=== PATIENT | male | born 1965 | race Caucasian/White ===

== ENCOUNTER → 2019-11-28 08:45 | Outpatient (BNVA) | payer MEDICAID, SELFPAY | PROVIDERS: PCP Internal Medicine; Referring Provider Internal Medicine; Visit Provider Anesthesiology | DX: Z76.89 Persons encountering health services in other specified circumstances (principal) ==

== ENCOUNTER → 2019-12-12 08:01 | Outpatient (BNVA) | payer MEDICAID, SELFPAY | PROVIDERS: PCP Internal Medicine; Visit Provider Anesthesiology | DX: M17.31 Unilateral post-traumatic osteoarthritis, right knee (principal); I87.2 Venous insufficiency (chronic) (peripheral); G89.4 Chronic pain syndrome; F10.20 Alcohol dependence, uncomplicated | CPT/HCPCS: 99213 ==

== ENCOUNTER → 2019-12-15 12:59 | Outpatient (BNVA) | payer MEDICAID, SELFPAY | PROVIDERS: PCP Internal Medicine; Referring Provider Internal Medicine; Visit Provider Orthopaedic Surgery | DX: M62.89 Other specified disorders of muscle (principal); M17.11 Unilateral primary osteoarthritis, right knee | CPT/HCPCS: 99212; J1100 ==

== ENCOUNTER → 2020-02-02 09:14 | Outpatient (BNVA) | payer MEDICAID, SELFPAY | PROVIDERS: PCP Internal Medicine; Referring Provider Internal Medicine; Visit Provider Surgery Vascular Surgery | DX: I73.9 Peripheral vascular disease, unspecified (principal); I87.2 Venous insufficiency (chronic) (peripheral) | CPT/HCPCS: 99202 ==

== ENCOUNTER 2020-03-15 08:05 | Outpatient (REF) | payer MEDICAID, SELFPAY ==
--- NOTE | 2020-03-15 08:09 | US_ITS ---
EXAMINATION: COLOR-FLOW DUPLEX IMAGING OF THE BILATERAL LOWER EXTREMITY ARTERIAL SYSTEM. VELOCITY MEASUREMENTS TO THE POPLITEAL ARTERIES. CLINICAL INFORMATION: Peripheral vascular disease. FINDINGS: Right lower extremity: Brachial artery pressure is 117 mmHg with posterior tibial pressure 153 mmHg and at the dorsalis pedis artery 165 mmHg which corresponds to an ankle-brachial index of 1.28. This is a high normal ankle-brachial index however not likely related to noncompressible vessels as there are triphasic waveforms present to the ankle. Right common femoral artery has a triphasic waveform with peak systolic velocity 104 cm/s. Right profunda femoral artery has a triphasic waveform with peak systolic velocity of 49 cm/s. Proximal superficial femoral artery has a triphasic waveform with peak systolic velocity of 87 cm/s. Mid superficial femoral artery has a triphasic waveform with peak systolic velocity of 62 cm/s. Distal superficial femoral artery has a triphasic waveform with peak systolic velocity 54 cm/s. Popliteal artery has a triphasic waveform with peak systolic velocity of 45 cm/s. Distal posterior tibial artery has a triphasic waveform with peak systolic velocity of 49 cm/s. Proximal posterior tibial artery has a triphasic waveform with peak systolic velocity of 80 cm/s. Proximal peroneal artery has a triphasic waveform with peak systolic velocity of 40 cm/s. LEFT LOWER EXTREMITY: Brachial artery pressure is 129 mmHg. Ankle posterior tibial artery pressure is 168 mmHg. The ankle dorsalis pedis artery has a pressure 158 mmHg. This corresponds to a ankle-brachial index of 1.30. This is a high normal ankle-brachial index not likely related to a noncompressible vessel since there are triphasic waveforms present to the ankle. Common femoral artery has a triphasic waveform with peak systolic velocity of 82 cm/s. Profunda femoral artery has a triphasic waveform with peak systolic velocity of 64 cm/s. Proximal superficial femoral artery has a triphasic waveform and peak systolic velocity of 79 cm/s. Mid superficial femoral artery has a triphasic waveform and peak systolic velocity 53 cm/s. Distal superficial femoral artery has a triphasic waveform and peak systolic velocity of 41 cm/s. Popliteal artery has a triphasic waveform and peak systolic velocity of 64 cm/s. Distal posterior tibial artery has a triphasic waveform and peak systolic velocity of 56 cm/s. Proximal posterior tibial artery has a triphasic waveform and peak systolic velocity of 67 cm/s. Peroneal artery is not identified. US/US arterial duplex LE BI IMPRESSION: No significant lower extremity arterial disease from common femoral arteries to the ankles.
--- NOTE | 2020-03-15 08:09 | US_ITS ---
EXAMINATION: RIGHT and LEFT LOWER EXTREMITY VENOUS ULTRASOUND (Reflux Exam) CLINICAL INDICATION: Venous insufficiency, chronic, peripheral. COMPARISON: 12/07/2013 TECHNIQUE: Color flow triplex imaging and compression Doppler was performed to evaluate both the deep and the superficial systems bilaterally. To evaluate the superficial system, the examination was performed in the upright position. Color-flow Doppler ultrasound and compression ultrasound were utilized. In addition, maneuvers were utilized to demonstrate reflux. FINDINGS: 1. DEEP VENOUS ULTRASOUND OF THE RIGHT LOWER EXTREMITY: Respiratory variation, normal compression and augmented flow are noted in the right common femoral vein as well as the right popliteal vein and there is no evidence of deep venous thrombosis at these locations. There is deep venous reflux present. At the level of the common femoral vein, there is reflux of approximately 1.4 seconds. In the mid femoral vein, reflux is approximately 2 seconds. In the popliteal vein, the reflux is 2.9 seconds. No popliteal fossa cyst artery aneurysm. 2. SUPERFICIAL ULTRASOUND WITH DOPPLER OF RIGHT LOWER EXTREMITY: The right great saphenous vein at the saphenofemoral junction measures 9 mm, at the mid thigh 5 mm, [id number] 4 mm, [id number] 4 mm, at mid calf 4 mm and at the ankle measures 4 mm. The only reflux in the greater saphenous vein is seen at the level of the ankle and 2.2 seconds with no reflux seen at the saphenofemoral junction. The right small saphenous vein measures 5 mm and shows no reflux. A perforate is seen in the mid calf measuring 4 mm in diameter with reflux time of 2.6 seconds noted. There are varicose veins noted within the mid thigh, proximal calf, and distal calf with reflux seen within the calf varicosities. 3. DEEP VENOUS ULTRASOUND OF THE LEFT LOWER EXTREMITY: Respiratory variation, normal compression and augmented flow are noted in the left common femoral vein as well as the left popliteal vein and there is no evidence of deep venous thrombosis at these locations. There is no evidence of reflux in the deep system in either the common femoral vein or the popliteal vein. No popliteal fossa cyst or popliteal artery aneurysm. 4. SUPERFICIAL ULTRASOUND WITH DOPPLER OF LEFT LOWER EXTREMITY: Left great saphenous vein at the saphenofemoral junction measures 9 mm, at the mid thigh 4 mm, above the knee 5 mm, below the knee 3 mm, at mid calf 2 mm and at the ankle measures 3 mm. There is no reflux demonstrated in the left great saphenous vein other than at the ankle up to approximately 0.6 seconds. The left small saphenous vein measures 5 mm and shows no reflux. US/US venous duplex LE BI IMPRESSION: No evidence of thrombus in the common femoral veins or popliteal veins bilaterally. Deep venous reflux within the right lower extremity from common femoral vein through popliteal vein. The saphenous systems are competent bilaterally other than for at the ankle level.
== END 2020-03-15 08:06 | disposition home or self-care (01) ==
LOC: HO.US 08:05
PROVIDERS: PCP Internal Medicine; Visit Provider Surgery Vascular Surgery
DX: I70.213 Atherosclerosis of native arteries of extremities with intermittent claudication, bilateral legs (principal); I87.2 Venous insufficiency (chronic) (peripheral)
CPT/HCPCS: 93923; 93925; 93970

== ENCOUNTER → 2020-03-29 08:54 | Outpatient (BNVA) | payer MEDICAID, SELFPAY | PROVIDERS: PCP Internal Medicine; Visit Provider Surgery Vascular Surgery | DX: I73.9 Peripheral vascular disease, unspecified (principal); G62.9 Polyneuropathy, unspecified | CPT/HCPCS: 99212 ==

== ENCOUNTER 2020-07-12 13:42 | Outpatient (REF) | payer MEDICAID, SELFPAY ==
--- NOTE | ~2020-07-12 | MM_ITS ---
EXAMINATION: MM DIAGNOSTIC DIGITAL BREAST TOMOSYNTHESIS, BILATERAL CLINICAL INFORMATION: Left breast lump COMPARISON: Mammography: None TECHNIQUE: Digital breast tomosynthesis is performed in both the craniocaudal and mediolateral oblique views along with computer-aided detection (CAD). Synthesized 2D images are generated from the tomosynthesis. Targeted left breast ultrasound FINDINGS: There are scattered areas of fibroglandular density (ACR BI-RADS breast composition Category b). There is some retroareolar breast parenchyma present consistent with gynecomastia. No suspicious dominant mass or abnormal calcifications identified. No architectural distortion is seen. Targeted left breast ultrasound at palpable region where patient direct this study to does not demonstrate any suspicious cystic or solid lesions. No region of abnormal distal sound shadowing is evident. There are 2 adjacent hyperechoic regions which could represent breast lobules or possible lipomas the largest of which measures approximately 1.8 x 0.7 cm in size and is wider than it is tall and avascular. Results are discussed with the patient at time of visit. MM/MM tomosynthesis diagnostic BI IMPRESSION: No specific mammographic or ultrasound findings to suggest malignancy. ASSESSMENT: BI-RADS 2: Benign RECOMMENDATION: Clinical management
--- NOTE | ~2020-07-12 | US_ITS ---
EXAMINATION: US DIAGNOSTIC ULTRASOUND BREAST, LEFT CLINICAL INFORMATION: Lump. COMPARISON: Mammography of same day. TECHNIQUE: Ultrasound of the breast is performed with real-time ortiz scale imaging and color Doppler. FINDINGS: Targeted left breast ultrasound at palpable region where patient direct this study to does not demonstrate any suspicious cystic or solid lesions. No region of abnormal distal sound shadowing is evident. There are 2 adjacent hyperechoic regions which could represent breast lobules or possible lipomas the largest of which measures approximately 1.8 x 0.7 cm in size and is wider than it is tall and avascular. Results are discussed with the patient at time of visit. US/US breast LT limited IMPRESSION: No specific mammographic or ultrasound findings to suggest malignancy. ASSESSMENT: BI-RADS 2: Benign RECOMMENDATION: Clinical management
== END 2020-07-12 13:43 | disposition home or self-care (01) ==
LOC: HO.MAMMO 13:42
PROVIDERS: PCP Internal Medicine; Visit Provider Internal Medicine
DX: N63.21 Unspecified lump in the left breast, upper outer quadrant (principal)
CPT/HCPCS: 76642; 77062; 77066

== ENCOUNTER 2020-11-06 15:00 | Outpatient (RCR) | payer MEDICAID, SELFPAY | END 2020-12-10 15:08 | disposition home or self-care (01) | LOC: HO.PT 15:00 | PROVIDERS: PCP Internal Medicine; Visit Provider Internal Medicine | DX: M25.561 Pain in right knee (principal) | CPT/HCPCS: 97110; 97150; 97162 ==

== ENCOUNTER 2021-04-03 08:55 | Outpatient (REF) | payer MEDICAID, SELFPAY ==
--- NOTE | ~2021-04-03 | US_ITS ---
EXAMINATION: US RETROPERITONEAL LIMITED (RENAL ONLY) CLINICAL INFORMATION: Chronic kidney disease. COMPARISON: Nuclear medicine renal scan 10/29/2017. Ultrasound abdomen 08/10/2017 and 07/08/2014. TECHNIQUE: Real-time imaging of the kidneys. FINDINGS: RIGHT KIDNEY: 11.6 x 7.2 x 6.3 cm (SAG x AP x TRV). The kidney is normal in size, contour, and echogenicity. Renal cortical thickness is normal. No calculi or focal parenchymal lesions. No hydronephrosis. LEFT KIDNEY: 13.4 x 7.3 x 5.7 cm (SAG x AP x TRV). The kidney is normal in size, contour, and echogenicity. Renal cortical thickness is normal. There is mild left hydronephrosis. There are several echogenic foci in the left kidney suggestive of stones, largest measuring 5 mm in the upper pole. No focal parenchymal lesions. US/US renal BI IMPRESSION: Normal right kidney. Mild left hydronephrosis and probable small left renal stones. Hydronephrosis is similar to previous exam from 2018.
== END 2021-04-03 08:56 | disposition home or self-care (01) ==
LOC: HO.US 08:55
PROVIDERS: Visit Provider Internal Medicine
DX: N18.9 Chronic kidney disease, unspecified (principal)
CPT/HCPCS: 76775

== ENCOUNTER 2021-04-17 11:14 | Inpatient (IN) | payer MEDICAID, SELFPAY ==
--- NOTE | ~2021-04-17 | US_ITS ---
EXAMINATION: US ABDOMEN LIMITED CLINICAL INFORMATION: Right upper quadrant pain. Question cholecystitis on CT.. COMPARISON: CT abdomen and pelvis 04/17/2021 TECHNIQUE: Real-time imaging of the right upper quadrant abdominal viscera. FINDINGS: There is echogenic mobile debris seen in the gallbladder with no echogenic stones. The wall appears mildly thickened measuring 1.2 cm and slightly edematous with increased vascularity. CBD is not visualized. US/US abdomen limited IMPRESSION: Thickened gallbladder with edema and echogenic debris but no pericholecystic fluid collection or echogenic stones. Question acalculus cholecystitis similar to CT finding.
--- NOTE | ~2021-04-17 | CT_ITS ---
EXAMINATION: CT ABDOMEN AND PELVIS WITHOUT CONTRAST CLINICAL INFORMATION: Right-sided pain. History of kidney stones. COMPARISON: Previous CT of the abdomen and pelvis June 2014 and renal ultrasound March 2021 TECHNIQUE: Multidetector volumetric imaging was performed from the superior aspect of the liver through the pubic symphysis. Sagittal and coronal reformatted images were obtained on the technologist's workstation. This CT examination was performed using dose optimization techniques as appropriate, variously including the following: *Automated exposure control *Adjustment of mA and/or kV according to patient size (this includes techniques or standardized protocols for targeted exams where dose is matched to indication/reason for exam; i.e. extremities or head) *Use of iterative reconstruction technique DLP: 1043 mGy-cm FINDINGS: LUNG BASES: The visualized lung bases are unremarkable. LIVER, GALLBLADDER, AND BILIARY TREE: The liver is normal in size, shape, and attenuation. No focal hepatic lesion or biliary ductal dilatation is present. The gallbladder wall is very thickened and may be edematous. There is stranding of the pericholecystic fat. No gallstones are seen by CT scan. The appearance is concerning for cholecystitis. There is no intra or extrahepatic biliary duct dilatation. Common bile duct appears upper normal in size measuring 7 mm. PANCREAS: Unremarkable. SPLEEN: Unremarkable. ADRENAL GLANDS: Unremarkable. KIDNEYS AND URETERS: There are small left renal stones, largest measuring 3 mm in the upper pole of the left kidney. No right renal stones are seen. There is mild left hydronephrosis. The left ureter does not appear dilated. No ureteral stone is seen. BLADDER: Unremarkable. GASTROINTESTINAL TRACT: The small and large bowel are unremarkable. The appendix is unremarkable. ABDOMINAL WALL: There is a small umbilical hernia containing fat. LYMPH NODES: There are small retroperitoneal lymph nodes. No enlarged lymph nodes are seen. VASCULAR: Unremarkable. PELVIC VISCERA: Unremarkable. OSSEOUS STRUCTURES: There are degenerative changes of the spine. CT/CT abdomen pelvis wo con IMPRESSION: Abnormal appearing gallbladder concerning for cholecystitis. No gallstone seen by CT scan. Small left renal stones and mild left hydronephrosis. No right renal stone or hydronephrosis seen. Fleischner guidelines were followed.
[2021-04-17 11:51] VITALS: BP 152/97; PULSE 99; RESP 18; TEMP 36.9; O2SAT 98; BMI 35.7
--- NOTE | 2021-04-17 11:59 | ED_ITS ---
HPI - Abdominal Pain General Chief Complaint: Abdominal Pain Stated Complaint: Abd pain Time Seen by Provider: 04/17/21 11:59 Source: patient Mode of arrival: ambulatory Limitations: no limitations History of Present Illness HPI narrative: Patient 56 years old with history of kidney stones noticed pain in the right upper quadrant and flank area for last 3 days no nausea no vomiting pain gets worse on ambulation patient never had any problems with gallstones had kidney stones in the past had stent placed 8 years ago on the left side no fever no chills no diarrhea had normal bowel movement earlier today does not feel hungry and pain gets worse after he eats Related Data Home Medications Medication Instructions Recorded Confirmed atorvastatin 20 mg tablet 20 mg PO BEDTIME 11/26/19 04/17/21 folic acid 1 mg tablet 1 mg PO DAILY 11/26/19 04/17/21 furosemide 80 mg tablet (Lasix) 80 mg PO DAILY 11/26/19 04/17/21 acetaminophen 500 mg tablet 2 tab PO Q8H PRN 04/17/21 04/17/21 capsaicin 0.075 % topical cream 1 appl TOPICAL TID 04/17/21 04/17/21 (Arthritis Pain Relief (capsaicin)) cyanocobalamin (vitamin B-12) 100 0.5 tab PO QAM 04/17/21 04/17/21 mcg tablet escitalopram oxalate 10 mg tablet 1 tab PO QAM 04/17/21 04/17/21 gabapentin 800 mg tablet 3 tab PO QAM 04/17/21 04/17/21 latanoprost 0.005 % eye drops 1 drp OPHTHALMIC (EYE) DAILY 04/17/21 04/17/21 metoprolol succinate 50 mg 1 tab PO QAM 04/17/21 04/17/21 tablet,extended release 24 hr multivitamin 1 tab PO DAILY 04/17/21 04/17/21 oxycodone 5 mg tablet 1 tab PO DAILY PRN 04/17/21 04/17/21 pantoprazole 40 mg tablet,delayed 1 tab PO QAM 04/17/21 04/17/21 release tamsulosin 0.4 mg capsule 1 cap PO QAM 04/17/21 04/17/21 testosterone 20.25 mg/1.25 gram 1 pump TOPICAL QAM 04/17/21 04/17/21 (1.62 %) transdermal gel pump (AndroGel) thiamine HCl (vitamin B1) 100 mg 1 tab PO QAM 04/17/21 04/17/21 tablet topiramate 50 mg tablet 1 tab PO BEDTIME 04/17/21 04/17/21 varenicline 1 mg tablet 1 tab PO BID 04/17/21 04/17/21 verapamil 200 mg capsule 24hr 1 cap PO BEDTIME 04/17/21 04/17/[address],ext.release Allergies Allergy/AdvReac Type Severity Reaction Status Date / Time disulfiram [From ANTABUSE] Allergy Unknown SWELLING Verified 03/29/20 09:08 Review of Systems Review of Systems Yes all other systems are reviewed and are negative [facility] Past Medical History Medical History Alcohol dependence Cellulitis and abscess of leg, except foot Chronic alcoholism Chronic pain syndrome Combinations of drug dependence excluding opioid type drug Depressive disorder Hamstring tightness Post-traumatic osteoarthritis of right knee Venous insufficiency of right lower extremity Surgical History History of ankle surgery History of vasectomy Family History Family History Father No problems noted. Mother No problems noted. Social History Social History Advance Directives: Yes Advance Directives Information Provided: No Advance Directives on File: No Current occupational status: disabled Current occupation: Right Handed Physical Exam ED Vital Signs: Vital Signs - 24 hr 04/17/21 11:51 04/17/21 14:31 Temperature 98.4 F Pulse Rate 99 84 Respiratory Rate 18 17 Blood Pressure 152/97 H 122/91 H Pulse Oximetry 98 96 BMI result Body Mass Index 35.7 Appearance: Alert. Oriented X3. No acute distress. Eyes: No pallor or icterus ENT: Pharynx normal. Oral Mucosa moist Neck: Normal inspection. Neck supple. CVS: Normal heart rate and rhythm. Pulses normal. Respiratory: No respiratory distress. Equal air entry bilateral, no wheezing/rales/rhonchi Abdomen: Soft , tenderness right upper quadrant and bilateral flank area, Bowel sounds are present, no mass palpable, Skin: Skin warm and dry. Normal skin color. Normal skin turgor. Extremities: No lower extremity edema. No calf tenderness Neuro: Oriented X 3. MDM - Abdominal Pain MDM Narrative Medical decision making narrative: Patient's right upper quadrant pain workup showed acalculous cholecystitis with thickening of the gallbladder wall to 1.2 cm normal CBD normal liver function test white count slightly elevated normal lactic acid case seen by Dr. Jack will admit the patient to surgical site advised to start on Zosyn Medical Records Attestation: I reviewed the patient's medical records. Lab Data Attestation: I reviewed the patient's lab results. Result diagrams: 04/17/21 11:59 04/17/21 11:59 Labs: Lab Results 04/17/21 04/17/21 04/17/21 Range/Units 11:59 11:59 15:06 WBC 11.5 H (4.8-10.8) X10*3/uL RBC 4.97 (4.60-5.80) X10*6/uL Hgb 14.3 (14.0-18.0) g/dl Hct 44.3 (42.0-52.0) % MCV 89.1 (80.0-98.0) fL MCH 28.8 (27.0-33.0) pg MCHC 32.3 (31.0-36.0) g/dl RDW 14.0 (11.0-16.0) % Plt Count 206 (160-400) X10*3/uL MPV 9.8 (9.4-12.4) fL Immature Gran % (Auto) 0.3 (0.0-0.4) % Neut % (Auto) 71.7 (45-73) % Lymph % (Auto) 16.9 L (20-40) % [place] % (Auto) 9.6 (2-11) % Eos % (Auto) 1.0 (0-4) % Baso % (Auto) 0.5 (0-2) % Lymph # (Auto) 1.9 (1.2-4.9) X10*3/uL [place] # (Auto) 1.1 (0.1-1.2) X10*3/uL Eos # (Auto) 0.1 (0.0-0.4) X10*3/uL Baso # (Auto) 0.1 (0.0-0.2) X10*3/uL Abs Immat Gran (auto) 0.04 H (0.00-0.03) X10*3/uL Absolute Neuts (auto) 8.3 (2.0-8.3) x10*3/uL Absolute Nucleated RBC 0.000 (0.0-0.012) X10*3/uL Nucleated RBC % (auto) 0.0 (0.0-0.2) /100WBC Sodium 139 (135-145) mmol/L Potassium 3.6 (3.3-5.1) mmol/L Chloride 99 (96-108) mmol/L Carbon Dioxide 29 (22-29) mmol/L Anion Gap 15 (12-20) BUN 15 (9-16) mg/dL Creatinine 1.07 (0.5-1.4) mg/dL Estim Creat Clear Calc 114.5 Estimated GFR > 60 Random Glucose 109 (60-115) mg/dL Lactic Acid 0.9 (0.5-2.0) mmol/L Calcium 9.7 (8.4-10.2) mg/dL Total Bilirubin 0.7 (0.0-1.0) mg/dL AST 15 (5-37) U/L ALT 15 (0-40) U/L Alkaline Phosphatase 78 (39-117) U/L Total Protein 7.2 (6.5-8.0) g/dL Albumin 4.2 (3.5-5.0) g/dL Lipase 14 (8-78) U/L Discharge Plan Discharge Clinical Impression: Acute acalculous cholecystitis Patient Disposition: Admitted As Inpatient
[2021-04-17 12:04] LABS: MANUAL DIFF FLAG NO
[2021-04-17 12:12] LABS: Basophils Absolute Auto 0.1 X10*3/uL (0.0-0.2); Basophils Percent Auto 0.5 % (0-2); Eosinophils Absolute Auto 0.1 X10*3/uL (0.0-0.4); Hematocrit 44.3 % (42.0-52.0); Hemoglobin 14.3 g/dl (14.0-18.0); Imm Gran Abs Auto 0.04 X10*3/uL (0.00-0.03); Imm Gran Pct Auto 0.3 % (0.0-0.4); Lymphocytes Absolute Auto 1.9 X10*3/uL (1.2-4.9); Lymphocytes Percent Auto 16.9 % (20-40); Mean Corpuscular HGB Conc 32.3 g/dl (31.0-36.0); Mean Corpuscular Hemoglobin 28.8 pg (27.0-33.0); Mean Corpuscular Volume 89.1 fL (80.0-98.0); Mean Platelet Volume 9.8 fL (9.4-12.4); Monocytes Absolute Auto 1.1 X10*3/uL (0.1-1.2); Monocytes Percent Auto 9.6 % (2-11); Neutrophils Absolute Auto 8.3 x10*3/uL (2.0-8.3); Neutrophils Percent Auto 71.7 % (45-73); Platelet Count 206 X10*3/uL (160-400); Red Blood Count 4.97 X10*6/uL (4.60-5.80); White Blood Count 11.5 X10*3/uL (4.8-10.8)
[2021-04-17 12:26] LABS: Alanine Aminotransferase 15 U/L (0-40); Albumin Level 4.2 g/dL (3.5-5.0); Alkaline Phosphatase 78 U/L (39-117); Anion Gap 15 (12-20); Aspartate Amino Transferase 15 U/L (5-37); Bilirubin Total 0.7 mg/dL (0.0-1.0); Blood Urea Nitrogen 15 mg/dL (9-16); Calcium 9.7 mg/dL (8.4-10.2); Carbon Dioxide 29 mmol/L (22-29); Chloride 99 mmol/L (96-108); Creatinine Clr Calc Pharmacy 114.5; Estimated Glomerular Filt Rate > 60; Glucose Random 109 mg/dL (60-115); Lipase 14 U/L (8-78); Potassium 3.6 mmol/L (3.3-5.1); Sodium 139 mmol/L (135-145); Total Protein 7.2 g/dL (6.5-8.0)
[2021-04-17] MEDS: 0.9 % Sodium Chloride 1,000 ML 999 ML IV ×2 (13:46→18:03)
[2021-04-17] MEDS: HYDROmorphone HCl 1 MG/ML SYRINGE IVPUSH ×3 (13:46→18:01)
[2021-04-17] MEDS: ondansetron HCL 4 MG/2 ML VIAL IVPUSH (13:47)
[2021-04-17 14:31] VITALS: BP 122/91; PULSE 84; RESP 17; O2SAT 96
[2021-04-17 15:23] LABS: Lactic Acid 0.9 mmol/L (0.5-2.0)
--- NOTE | 2021-04-17 15:51 | ECG_ITS ---
Test Reason : HTN Blood Pressure : / mmHG Vent. Rate : 077 BPM Atrial Rate : 077 BPM P-R Int : 186 ms QRS Dur : 166 ms QT Int : 432 ms P-R-T Axes : 051 -21 038 degrees QTc Int : 488 ms Normal sinus rhythm Right bundle branch block Abnormal ECG When compared with ECG of 06-JUL-2017 21:43, Right bundle branch block is now Present Referred By: Michele Aguilar Electronically Signed By:MAYTE HUANG
--- NOTE | 2021-04-17 16:22 | PHA.MEDREC ---
Pharmacy Consult ? Medication Reconciliation Pharmacy has completed the medication reconciliation. Patient states he used a med box for all of his medications. He takes the oxycodone every once in a while when his knee pain is acting up. The Androgel isn't used daily, he states that he forgets for a couple days then dose a few pumps in one day. He also stated that he missed his last few doses of Chantix.
--- NOTE | 2021-04-17 17:14 | P.HPGS_ITS ---
History of Present Illness History of Present Illness Date of Service: 04/23/21 Chief complaint: Right upper quadrant pain Narrative: Zuhair Anthony is a 56 year old male with history of alcohol abuse, CHF, hypertension, had admitted today by the ER because of epigastric and right upper quadrant pain. He says that this started about 2 days ago. This seems to have worsened today so he decided to come to the ER. He denies any fever or chills. He denies any nausea or vomiting. He does have a significant history of alcohol abuse. He says that he has been sober for several months now however. Review of Systems Constitutional: Constitutional: Denies chills and Denies fever(s) Cardiovascular: Cardiovascular: Denies chest pain, Denies dyspnea and Denies dyspnea on exertion Respiratory: Respiratory: Denies cough, Denies dyspnea and Denies dyspnea on exertion Gastrointestinal: Gastrointestinal: Denies hematochezia and Denies change in bowel habits Genitourinary: Genitourinary: Denies hematuria and Denies difficulty urinating Musculoskeletal: Musculoskeletal: Denies back pain and Denies limited range of motion Neurologic: Denies focal weakness and Denies convulsions Psychiatric: Psychiatric: Denies depression and Denies mood swings PMFSH Past Medical History Medical History (Updated 04/18/21 @ 11:07 by Jami Callahan MD) Alcohol dependence Cellulitis and abscess of leg, except foot Chronic alcoholism Chronic pain syndrome Combinations of drug dependence excluding opioid type drug Depressive disorder Hamstring tightness Post-traumatic osteoarthritis of right knee Venous insufficiency of right lower extremity Family History Family History Father No problems noted. Mother No problems noted. Surgical History Surgical History (Updated 04/18/21 @ 18:00 by Obey Jack MD) History of ankle surgery History of umbilical hernia repair History of vasectomy Social History Social History Household Members: Family Housing: House Do you presently have visiting nurse or other home services: No Patient Tobacco Use Status: Current everyday Tobacco user Tobacco use type: Cigarette Cigarette Packs Per Day: 0.5 Cigarettes Per Day: 10 Years Smoked: 36 Second Hand Smoke Exposure: Yes Advance Directives Date on File: 04/17/21 service: No Current occupational status: disabled Current occupation: Right Handed Meds Allergies Allergy/AdvReac Type Severity Reaction Status Date / Time disulfiram [From ANTABUSE] Allergy Unknown SWELLING Verified 04/22/21 14:23 Active Medications: Current Medications Escitalopram Oxalate (Escitalopram Oxalate 10 Mg Tablet) 10 mg PO QAM KIKI Folic Acid (Folic Acid 1 Mg Tablet) 1 mg PO DAILY KIKI Furosemide (Furosemide 40 Mg Tablet) 80 mg PO DAILY KIKI; Protocol Gabapentin (Gabapentin 400 Mg Capsule) 2,400 mg PO QAM KIKI Hydromorphone HCl (Hydromorphone Hcl 1 Mg/Ml Syringe) 0.5 mg IVPUSH Q3H PRN; Protocol PRN Reason: Pain, Severe (Pain Scale 7-10) Sodium Chloride (Ns) 1,000 mls @ 80 mls/hr IVCONT .[id number] KIKI Piperacillin Sod/Tazobactam (Sod 3.375 gm/ Sodium Chloride) 50 mls @ 100 mls/hr IV Q6H KIKI Latanoprost (Latanoprost 0.005 % Ophth Shirley 2.5 Ml Drops) 1 drop EYE-BOTH DAILY KIKI Metoprolol Succinate (Metoprolol Succinate Er 50 Mg Tab.Er.24h) 50 mg PO QAM KIKI; Protocol Omeprazole (Omeprazole 40 Mg Capsule.Dr) 40 mg PO DAILY KIKI Ondansetron HCl (Ondansetron Hcl 4 Mg/2 Ml Vial) 4 mg IVPUSH Q8H PRN PRN Reason: Nausea and Vomiting Sodium Chloride (0.9 % Sodium Chloride Flush 3 Ml Syringe) 3 ml IVFLUSH QSHIFT KIKI Tamsulosin HCl (Tamsulosin Hcl 0.4 Mg Capsule) 0.4 mg PO QAM KIKI Thiamine HCl (Thiamine Hcl 100 Mg Tablet) 100 mg PO QAM KIKI Topiramate (Topiramate 25 Mg Tablet) 50 mg PO BEDTIME KIKI Verapamil HCl (Verapamil Hcl Sr 100 Mg Cap24h.Pct) 200 mg PO BEDTIME KIKI; Protocol Home Medications Medication Instructions Recorded Confirmed Last Taken Type atorvastatin 20 mg tablet 20 mg PO BEDTIME 11/26/19 04/22/21 04/16/21 History folic acid 1 mg tablet 1 mg PO DAILY 11/26/19 04/22/21 04/17/21 History furosemide 80 mg tablet (Lasix) 80 mg PO DAILY 1004/22/21 04/17/21 History acetaminophen 500 mg tablet 2 tab PO Q8H PRN 04/17/21 04/22/21 Unknown History capsaicin 0.075 % topical cream 1 appl TOPICAL TID 04/17/21 04/22/21 Unknown History (Arthritis Pain Relief (capsaicin)) cyanocobalamin (vitamin B-12) 100 0.5 tab PO QAM 04/17/21 04/22/21 04/17/21 H istory mcg tablet escitalopram oxalate 10 mg tablet 1 tab PO QAM 04/17/21 04/22/21 04/17/21 History gabapentin 800 mg tablet 3 tab PO QAM 04/17/21 04/22/21 04/17/21 History latanoprost 0.005 % eye drops 1 drp OPHTHALMIC (EYE) DAILY 04/17/21 04/22/21 04/17/21 History metoprolol succinate 50 mg 1 tab PO QAM 04/17/21 04/22/21 04/17/21 History tablet,extended release 24 hr multivitamin 1 tab PO DAILY 04/17/21 04/22/21 04/17/21 History oxycodone 5 mg tablet 1 tab PO DAILY PRN 04/17/21 04/17/21 Unknown History pantoprazole 40 mg tablet,delayed 1 tab PO QAM 04/17/21 04/17/21 04/17/21 History release tamsulosin 0.4 mg capsule 1 cap PO QAM 04/17/21 04/17/21 04/17/21 History testosterone 20.25 mg/1.25 gram 1 pump TOPICAL QAM 04/17/21 04/17/21 Unknown History (1.62 %) transdermal gel pump (AndroGel) thiamine HCl (vitamin B1) 100 mg 1 tab PO QAM 04/17/21 04/17/21 04/17/21 History tablet topiramate 50 mg tablet 1 tab PO BEDTIME 04/17/21 04/17/21 04/16/21 History varenicline 1 mg tablet 1 tab PO BID 04/17/21 04/17/21 04/16/21 History verapamil 200 mg capsule 24hr 1 cap PO BEDTIME 04/17/21 04/17/21 04/16/[address],ext.release Physical Exam Vital Signs: Vital Signs: Last Vital Signs Temp 98.4 F 04/17/21 11:51 Pulse 84 04/17/21 14:31 Resp 17 04/17/21 14:31 BP 122/91 H 04/17/21 14:31 Pulse Ox 96 04/17/21 14:31 BMI result Body Mass Index 35.7 Const: Other: Appears obese General: comfortable and no acute distress Orientation/consciousness: patient oriented x3 Neck: Neck: Yes no lymphadenopathy Resp: Auscultation: clear to auscultation bilaterally Cardio: Rhythm: regular rhythm GI: Other: Tender in right upper quadrant Palpation (GI): Soft to palpation, Tenderness to palpation present (GI) and no guarding Neuro: General: patient oriented x3 Results Results Labs: Short CBC 04/17/21 Range/Units 11:59 WBC 11.5 H (4.8-10.8) X10*3/uL Hgb 14.3 (14.0-18.0) g/dl Hct 44.3 (42.0-52.0) % Plt Count 206 (160-400) X10*3/uL BMP 04/17/21 11:59 Sodium 139 Potassium 3.6 Chloride 99 Carbon Dioxide 29 BUN 15 Creatinine 1.07 Calcium 9.7 Liver Function 04/17/21 Range/Units 11:59 Total Bilirubin 0.7 (0.0-1.0) mg/dL AST 15 (5-37) U/L ALT 15 (0-40) U/L Alkaline Phosphatase 78 (39-117) U/L Albumin 4.2 (3.5-5.0) g/dL Abdomen CT scan report/results: report reviewed and image reviewed Assessment and Plan (1) Acute acalculous cholecystitis: Status: Acute He describes right upper quadrant pain and tenderness. I reviewed his ultrasound and his CAT scan. This shows some thickening of the gallbladder wall without any evidence of any gallstones. Findings are suggestive of acute acalculous cholecystitis. He will be admitted for antibiotics. He has been started on IV fluids. He has been ordered for pain medications. Will repeat his LFTs tomorrow as well. I told him that if he continues to have significant pain, he may benefit from cholecystectomy. I described the him the technique of laparoscopic cholecystectomy and possible open cholecystectomy. I reviewed the risks including but not limited to bleeding, infections, injury to bowel, liver and bile ducts, as well as the benefits and alternatives. We will re-evaluate him in the morning. I have consulted the hospitalist service in view of his history of CHF. Quality Stroke Does the patient have a stroke diagnosis?: No VTE Prior VTE?: No VTE Risk Level:: Medical - moderate - high VTE Device Contraindication: N/A - Device Ordered VTE Drug Contraindication: N/A - Med Ordered Procedures Date of Service Date of Service: 04/17/21
--- NOTE | 2021-04-17 17:40 | P.CONIM_ITS ---
History of Present Illness Data of Consult Service Date: 04/17/21 Primary Care Provider: Unknown Physician HPI Reason for consult: History of CHF a 56 years old male with PMH of obesity, P 80, HLD, CHF, BPH among others who presented to the hospital with abdominal pain and found to have cholecystitis picture. The patient reports that he lost almost 50 lb since November and for the last few weeks he noticed some indigestion upon eating fatty staff. For the last 3 days this and does SM became pain and he was in the bed most of the time as a result of that. He came to the emergency stay and evaluated by surgery team who recommended admission for acalculous cholecystitis and started him on IV fluid and IV antibiotics with possible plan for surgery. Hospitalist team asked to evaluate the patient for history of CHF and other medical problems. He reports CHF has been controlled medication with no recent exacerbation. Review of Systems Review of Systems: No fever, chills or weakness No chest pain, palpitation No shortness of breath or coughing Right upper quadrant abdominal pain, associated with mild nausea but no vomiting No urinary symptoms No any rash or wounds PMFSH Medical History Alcohol dependence Cellulitis and abscess of leg, except foot Chronic alcoholism Chronic pain syndrome Combinations of drug dependence excluding opioid type drug Depressive disorder Hamstring tightness Post-traumatic osteoarthritis of right knee Venous insufficiency of right lower extremity Family History Father No problems noted. Mother No problems noted. Surgical History History of ankle surgery History of vasectomy Social History Advance Directives: Yes Advance Directives Information Provided: No Advance Directives on File: No Current occupational status: disabled Current occupation: Right Handed Meds Allergies Allergy/AdvReac Type Severity Reaction Status Date / Time disulfiram [From ANTABUSE] Allergy Unknown SWELLING Verified 03/29/20 09:08 Active Medications: Current Medications Escitalopram Oxalate (Escitalopram Oxalate 10 Mg Tablet) 10 mg PO DAILY [facility] Folic Acid (Folic Acid 1 Mg Tablet) 1 mg PO DAILY [facility] Furosemide (Furosemide 40 Mg Tablet) 80 mg PO DAILY [facility]; Protocol Gabapentin (Gabapentin 400 Mg Capsule) 2,400 mg PO DAILY [facility] Hydromorphone HCl (Hydromorphone Hcl 1 Mg/Ml Syringe) 0.5 mg IVPUSH Q3H PRN; Protocol PRN Reason: Pain, Severe (Pain Scale 7-10) Sodium Chloride (Ns) 1,000 mls @ 80 mls/hr IVCONT .[id number] [facility] Piperacillin Sod/Tazobactam (Sod 3.375 gm/ Sodium Chloride) 50 mls @ 100 mls/hr IV Q6H [facility] Latanoprost (Latanoprost 0.005 % Ophth [place] 2.5 Ml Drops) 1 drop EYE-BOTH DAILY [facility] Metoprolol Succinate (Metoprolol Succinate Er 50 Mg Tab.Er.24h) 50 mg PO DAILY [facility]; Protocol Omeprazole (Omeprazole 40 Mg Capsule.Dr) 40 mg PO DAILY@0630 [facility] Ondansetron HCl (Ondansetron Hcl 4 Mg/2 Ml Vial) 4 mg IVPUSH Q8H PRN PRN Reason: Nausea and Vomiting Sodium Chloride (0.9 % Sodium Chloride Flush 3 Ml Syringe) 3 ml IVFLUSH QSHIFT [facility] Tamsulosin HCl (Tamsulosin Hcl 0.4 Mg Capsule) 0.4 mg PO DAILY [facility] Thiamine HCl (Thiamine Hcl 100 Mg Tablet) 100 mg PO DAILY [facility] Topiramate (Topiramate 25 Mg Tablet) 50 mg PO BEDTIME [facility] Verapamil HCl (Verapamil Hcl Sr 100 Mg Cap24h.Pct) 200 mg PO BEDTIME [facility]; Protocol Home Medications Medication Instructions Recorded Confirmed Last Taken Type atorvastatin 20 mg tablet 20 mg PO BEDTIME 11/26/19 04/17/21 04/16/21 History folic acid 1 mg tablet 1 mg PO DAILY 11/26/19 04/17/21 04/17/21 History furosemide 80 mg tablet (Lasix) 80 mg PO DAILY 11/26/19 04/17/21 04/17/21 History acetaminophen 500 mg tablet 2 tab PO Q8H PRN 04/17/21 04/17/21 Unknown History capsaicin 0.075 % topical cream 1 appl TOPICAL TID 04/17/21 04/17/21 Unknown History (Arthritis Pain Relief (capsaicin)) cyanocobalamin (vitamin B-12) 100 0.5 tab PO QAM 0204/17/21 04/17/21 History mcg tablet escitalopram oxalate 10 mg tablet 1 tab PO QAM 04/17/21 04/17/21 04/17/21 History gabapentin 800 mg tablet 3 tab PO QAM 04/17/21 04/17/21 04/17/21 History latanoprost 0.005 % eye drops 1 drp OPHTHALMIC (EYE) DAILY 04/17/21 04/17/21 04/17/21 History metoprolol succinate 50 mg 1 tab PO QAM 04/17/21 04/17/21 04/17/21 History tablet,extended release 24 hr multivitamin 1 tab PO DAILY 04/17/21 04/17/21 04/17/21 History oxycodone 5 mg tablet 1 tab PO DAILY PRN 04/17/21 04/17/21 Unknown History pantoprazole 40 mg tablet,delayed 1 tab PO QAM 04/17/21 04/17/21 04/17/21 History release tamsulosin 0.4 mg capsule 1 cap PO QAM 04/17/21 04/17/21 04/17/21 History testosterone 20.25 mg/1.25 gram 1 pump TOPICAL QAM 04/17/21 04/17/21 Unknown History (1.62 %) transdermal gel pump (AndroGel) thiamine HCl (vitamin B1) 100 mg 1 tab PO QAM 04/17/21 04/17/21 04/17/21 History tablet topiramate 50 mg tablet 1 tab PO BEDTIME 04/17/21 04/17/21 04/16/21 History varenicline 1 mg tablet 1 tab PO BID 04/17/21 04/17/21 04/16/21 History verapamil 200 mg capsule 24hr 1 cap PO BEDTIME 04/17/21 04/17/21 04/16/[address],ext.release Physical Exam Vital Signs and Narrative: Vital Signs: Last Vital Signs Temp 98.4 F 04/17/21 11:51 Pulse 84 04/17/21 14:31 Resp 17 04/17/21 14:31 BP 122/91 H 04/17/21 14:31 Pulse Ox 96 04/17/21 14:31 BMI result Body Mass Index 35.7 Const: Other: Constitutional : Alert, oriented, not in distress Neck : Normal inspection, Supple Cardiovascular : RRR, S1 S2, no lower extremity edema Respiratory : Good bilateral air entry, no crackles, wheezes or rhonchi Gastrointestinal: soft, lax, Normal bowel sounds, mild right upper quadrant tenderness Skin : Warm, Dry Neurological : Alert & oriented x3, No focal deficit Results Labs CBC and Chem 7: 04/17/21 11:59 04/17/21 11:59 Labs: Laboratory Results - last 24 hr 04/17/21 04/17/21 04/17/21 11:59 11:59 15:06 MCV 89.1 MCH 28.8 MCHC 32.3 RDW 14.0 Plt Count 206 MPV 9.8 Immature Gran % (Auto) 0.3 Neut % (Auto) 71.7 Lymph % (Auto) 16.9 L [place] % (Auto) 9.6 Eos % (Auto) 1.0 Baso % (Auto) 0.5 Lymph # (Auto) 1.9 [place] # (Auto) 1.1 Eos # (Auto) 0.1 Baso # (Auto) 0.1 Abs Immat Gran (auto) 0.04 H Absolute Neuts (auto) 8.3 Absolute Nucleated RBC 0.000 Nucleated RBC % (auto) 0.0 Anion Gap 15 Estim Creat Clear Calc 114.5 Estimated GFR > 60 Random Glucose 109 Lactic Acid 0.9 Calcium 9.7 Total Bilirubin 0.7 AST 15 ALT 15 Alkaline Phosphatase 78 Total Protein 7.2 Albumin 4.2 Lipase 14 Imaging Radiologist's Impressions: Impressions Abdomen/Pelvis CT 04/17/21 13:07 IMPRESSION: Abnormal appearing gallbladder concerning for cholecystitis. No gallstone seen by CT scan. Small left renal stones and mild left hydronephrosis. No right renal stone or hydronephrosis seen. Fleischner guidelines were followed. Abdomen Ultrasound 04/17/21 13:57 IMPRESSION: Thickened gallbladder with edema and echogenic debris but no pericholecystic fluid collection or echogenic stones. Question acalculus cholecystitis similar to CT finding. Assessment and Plan (1) Acute acalculous cholecystitis: Status: Acute (2) Diastolic CHF: Status: Acute Plan a 56 years old male with PMH of obesity, P 80, HLD, CHF, BPH among others who presented to the hospital with abdominal pain and found to have cholecystitis picture. acalculous cholecystitis On IV antibiotics and IV fluids Surgery team following History of diastolic CHF Not in exacerbation Lasix resumed by surgery team along with IV fluids Continue atorvastatin and metoprolol, verapamil BPH continue tamsulosin Resume the rest of his home medications Thank you for the consult, will continue to follow the patient with you
[2021-04-17] MEDS: Piperacillin Sodium/Tazobactam 3.375 GM in 0.9 % Sodium Chloride 50 ML IV (18:02)
[2021-04-17 18:06] LABS: Appearance Urine HAZY; Color Urine DK YELLOW; Glucose Urine UA NEG (NEG); Leukocyte Esterase Urine NEG (NEG); Nitrite Urine NEG (NEG); PH 5.5 (5.0-8.0); UACC Culture Trigger NO; Urine Blood NEG (NEG); Urine Ketones NEG (NEG); Urine Protein 1+ MG/DL (NEG-TRACE)
[2021-04-17 18:07] VITALS: BP 127/82; PULSE 83; RESP 18; TEMP 37; O2SAT 96
[2021-04-17 18:24] LABS: Amorphous Sediment Urine 2+ /LPF; Hyaline Casts Urine 0-2 /LPF; Mucus Urine 2+ /LPF; RBC Urine 0-2 /HPF (0); Squamous Epithelial Cell Urine 2+ /LPF
[2021-04-17 18:58] LABS: INTERNATIONAL NORM RATIO 1.2 (0.9-1.1); Prothrombin Time 13.4 SEC (9.9-13.0)
[2021-04-17 19:01] LABS: Partial Thromboplastin Time 37.7 SEC (24.1-38.0)
[2021-04-17 19:25] LABS: COVID-19 Test Negative (Negative)
[2021-04-17] MEDS: HYDROmorphone HCl 1 MG/ML SYRINGE 0.5 MG IVPUSH ×2 (19:59→22:59)
[2021-04-17 20:45] VITALS: BP 121/82; PULSE 73; RESP 18; TEMP 37; O2SAT 97
[2021-04-17] MEDS: Topiramate 25 MG TABLET 50 MG PO (22:04)
[2021-04-17] MEDS: 0.9 % Sodium Chloride 1,000 ML 80 ML IVCONT (22:09)
[2021-04-18] VITALS (22 sets, daily range): BP systolic 99–131; BP diastolic 65–86; PULSE 59–89; RESP 11–18; TEMP 35.8–36.8; O2SAT 92–98
[2021-04-18] MEDS: HYDROmorphone HCl 1 MG/ML SYRINGE 0.5 MG IVPUSH ×5 (02:00→20:51)
[2021-04-18] MEDS: Omeprazole 40 MG CAPSULE.DR PO (05:18)
[2021-04-18] MEDS: Piperacillin Sodium/Tazobactam 3.375 GM in 0.9 % Sodium Chloride 50 ML IV ×4 (05:18→23:45)
[2021-04-18 05:46] LABS: MANUAL DIFF FLAG NO
[2021-04-18 06:02] LABS: Basophils Absolute Auto 0.1 X10*3/uL (0.0-0.2); Basophils Percent Auto 0.6 % (0-2); Eosinophils Absolute Auto 0.1 X10*3/uL (0.0-0.4); Eosinophils Percent Auto 1.8 % (0-4); Hematocrit 37.6 % (42.0-52.0); Hemoglobin 11.5 g/dl (14.0-18.0); Imm Gran Abs Auto 0.03 X10*3/uL (0.00-0.03); Imm Gran Pct Auto 0.4 % (0.0-0.4); Lymphocytes Absolute Auto 1.3 X10*3/uL (1.2-4.9); Lymphocytes Percent Auto 16.8 % (20-40); Mean Corpuscular HGB Conc 30.6 g/dl (31.0-36.0); Mean Corpuscular Hemoglobin 27.8 pg (27.0-33.0); Mean Platelet Volume 10.2 fL (9.4-12.4); Monocytes Absolute Auto 0.9 X10*3/uL (0.1-1.2); Monocytes Percent Auto 11.9 % (2-11); Neutrophils Absolute Auto 5.4 x10*3/uL (2.0-8.3); Neutrophils Percent Auto 68.5 % (45-73); Platelet Count 179 X10*3/uL (160-400); Red Blood Count 4.13 X10*6/uL (4.60-5.80); Red Cell Distribution Width 13.8 % (11.0-16.0); White Blood Count 7.8 X10*3/uL (4.8-10.8)
[2021-04-18 06:21] LABS: Alanine Aminotransferase 207 U/L (0-40); Albumin Level 3.4 g/dL (3.5-5.0); Alkaline Phosphatase 191 U/L (39-117); Anion Gap 14 (12-20); Aspartate Amino Transferase 170 U/L (5-37); Bilirubin Direct 0.4 mg/dL (0.0-0.5); Blood Urea Nitrogen 15 mg/dL (9-16); Calcium 8.7 mg/dL (8.4-10.2); Carbon Dioxide 25 mmol/L (22-29); Chloride 104 mmol/L (96-108); Creatinine Clr Calc Pharmacy 136.1; Estimated Glomerular Filt Rate > 60; Glucose Random 98 mg/dL (60-115); Potassium 3.7 mmol/L (3.3-5.1); Sodium 139 mmol/L (135-145); Total Protein 5.8 g/dL (6.5-8.0)
--- NOTE | 2021-04-18 07:19 | P.CONAN_ITS ---
[facility] Active Problems Active Problems: All Active Problems (Updated 04/17/21 @ 18:26 by Jami Callahan MD) Diastolic CHF (Acute) Acute acalculous cholecystitis (Acute) PAD (peripheral artery disease) (Acute) Hamstring tightness (Acute) Chronic alcoholism (Acute) Chronic pain syndrome (Acute) Venous insufficiency of right lower extremity (Acute) Post-traumatic osteoarthritis of right knee (Acute) Past Medical History Medical History Alcohol dependence Cellulitis and abscess of leg, except foot Chronic alcoholism Chronic pain syndrome Combinations of drug dependence excluding opioid type drug Depressive disorder Hamstring tightness Post-traumatic osteoarthritis of right knee Venous insufficiency of right lower extremity Functional capacity: independent ambulation Family History Family History Father No problems noted. Mother No problems noted. Surgical History Surgical History History of ankle surgery History of vasectomy Social History Social History Household Members: Family Housing: House Do you presently have visiting nurse or other home services: No Patient Tobacco Use Status: Current everyday Tobacco user Tobacco use type: Cigarette Cigarette Packs Per Day: 0.5 Cigarettes Per Day: 10.0 Years Smoked: 36 Second Hand Smoke Exposure: Yes Advance Directives Date on File: 04/17/21 Current occupational status: disabled Current occupation: Right Handed Meds Allergies Allergy/AdvReac Type Severity Reaction Status Date / Time disulfiram [From ANTABUSE] Allergy Unknown SWELLING Verified 03/29/20 09:08 Active Medications: Current Medications Escitalopram Oxalate (Escitalopram Oxalate 10 Mg Tablet) 10 mg PO DAILY [facility]I Folic Acid (Folic Acid 1 Mg Tablet) 1 mg PO DAILY K[facility]I Furosemide (Furosemide 40 Mg Tablet) 80 mg PO DAILY KIKI; Protocol Gabapentin (Gabapentin 400 Mg Capsule) 2,400 mg PO DAILY [facility] Hydromorphone HCl (Hydromorphone Hcl 1 Mg/Ml Syringe) 0.5 mg IVPUSH Q3H PRN; Protocol PRN Reason: Pain, Severe (Pain Scale 7-10) Last Admin: 04/18/21 05:17 Dose: 0.5 mg Documented by: Sodium Chloride (Ns) 1,000 mls @ 80 mls/hr IVCONT .[id number] [facility] Last Admin: 04/18/21 06:29 Dose: Not Given Documented by: Piperacillin Sod/Tazobactam (Sod 3.375 gm/ Sodium Chloride) 50 mls @ 100 mls/hr IV Q6H [facility] Last Infusion: 04/18/21 06:29 Dose: Infused Documented by: Latanoprost (Latanoprost 0.005 % Ophth [place] 2.5 Ml Drops) 1 drop EYE-BOTH DAILY [facility] Metoprolol Succinate (Metoprolol Succinate Er 50 Mg Tab.Er.24h) 50 mg PO DAILY [facility]; Protocol Omeprazole (Omeprazole 40 Mg Capsule.Dr) 40 mg PO DAILY@0630 [facility] Last Admin: 04/18/21 05:18 Dose: 40 mg Documented by: Ondansetron HCl (Ondansetron Hcl 4 Mg/2 Ml Vial) 4 mg IVPUSH Q8H PRN PRN Reason: Nausea and Vomiting Sodium Chloride (0.9 % Sodium Chloride Flush 3 Ml Syringe) 3 ml IVFLUSH QSHIFT [facility] Last Admin: 04/18/21 00:43 Dose: Not Given Documented by: Tamsulosin HCl (Tamsulosin Hcl 0.4 Mg Capsule) 0.4 mg PO DAILY [facility] Thiamine HCl (Thiamine Hcl 100 Mg Tablet) 100 mg PO DAILY [facility] Topiramate (Topiramate 25 Mg Tablet) 50 mg PO BEDTIME [facility] Last Admin: 04/17/21 22:04 Dose: 50 mg Documented by: Verapamil HCl (Verapamil Hcl Sr 100 Mg Cap24h.Pct) 200 mg PO BEDTIME [facility]; Protocol Last Admin: 04/17/21 22:04 Dose: 200 mg Documented by: Home Medications Medication Instructions Recorded Confirmed Last Taken Type atorvastatin 20 mg tablet 20 mg PO BEDTIME 11/26/19 04/17/21 04/16/21 History folic acid 1 mg tablet 1 mg PO DAILY 11/26/19 04/17/21 04/17/21 History furosemide 80 mg tablet (Lasix) 80 mg PO DAILY 11/26/19 04/17/21 04/17/21 [place] acetaminophen 500 mg tablet 2 tab PO Q8H PRN 04/17/21 04/17/21 Unknown History capsaicin 0.075 % topical cream 1 appl TOPICAL TID 04/17/21 04/17/21 Unknown History (Arthritis Pain Relief (capsaicin)) cyanocobalamin (vitamin B-12) 100 0.5 tab PO QAM 04/17/21 04/17/21 04/17/21 History mcg tablet escitalopram oxalate 10 mg tablet 1 tab PO QAM 04/17/21 04/17/21 04/17/21 Histo ry gabapentin 800 mg tablet 3 tab PO QAM 04/17/21 04/17/21 04/17/21 History latanoprost 0.005 % eye drops 1 drp OPHTHALMIC (EYE) DAILY 04/17/21 04/17/21 04/17/21 History metoprolol succinate 50 mg 1 tab PO QAM 04/17/21 04/17/21 04/17/21 History tablet,extended release 24 hr multivitamin 1 tab PO DAILY 04/17/21 04/17/21 04/17/21 History oxycodone 5 mg tablet 1 tab PO DAILY PRN 04/17/21 04/17/21 Unknown History pantoprazole 40 mg tablet,delayed 1 tab PO QAM 04/17/21 04/17/21 04/17/21 History release tamsulosin 0.4 mg capsule 1 cap PO QAM 04/17/21 04/17/21 04/17/21 History testosterone 20.25 mg/1.25 gram 1 pump TOPICAL QAM 04/17/21 04/17/21 Unknown History (1.62 %) transdermal gel pump (AndroGel) thiamine HCl (vitamin B1) 100 mg 1 tab PO QAM 04/17/21 04/17/21 04/17/21 History tablet topiramate 50 mg tablet 1 tab PO BEDTIME 04/17/21 04/17/21 04/16/21 History varenicline 1 mg tablet 1 tab PO BID 04/17/21 04/17/21 04/16/21 History verapamil 200 mg capsule 24hr 1 cap PO BEDTIME 04/17/21 04/17/21 04/16/[address],ext.release Exam Exam Date and Time: April 18, 202119 Height,Weight and Vital Signs: Height 6 ft 3 in Weight 129.727 kg Last Vital Signs Temp 97.3 F 04/18/21 00:00 Pulse 75 04/18/21 00:00 Resp 16 02/24/22 05:17 BP 115/68 04/18/21 00:00 Pulse Ox 96 04/18/21 00:00 Pertinent Lab Results Pertinent Lab Results: Laboratory Tests 04/17/21 04/17/21 04/17/21 11:59 11:59 15:06 WBC 11.5 H RBC 4.97 Hgb 14.3 Hct 44.3 MCV 89.1 MCH 28.8 MCHC 32.3 RDW 14.0 Plt Count 206 MPV 9.8 Immature Gran % (Auto) 0.3 Neut % (Auto) 71.7 Lymph % (Auto) 16.9 L [place] % (Auto) 9.6 Eos % (Auto) 1.0 Baso % (Auto) 0.5 Lymph # (Auto) 1.9 [place] # (Auto) 1.1 Eos # (Auto) 0.1 Baso # (Auto) 0.1 Abs Immat Gran (auto) 0.04 H Absolute Neuts (auto) 8.3 Absolute Nucleated RBC 0.000 Nucleated RBC % (auto) 0.0 PT INR APTT Sodium 139 Potassium 3.6 Chloride 99 Carbon Dioxide 29 Anion Gap 15 BUN 15 Creatinine 1.07 Estim Creat Clear Calc 114.5 Estimated GFR > 60 Random Glucose 109 Lactic Acid 0.9 Calcium 9.7 Total Bilirubin 0.7 Direct Bilirubin AST 15 ALT 15 Alkaline Phosphatase 78 Total Protein 7.2 Albumin 4.2 Lipase 14 Urine Color Urine Appearance Urine pH Ur Specific [place] Urine Protein Urine Glucose (UA) Urine Ketones Urine Blood Urine Nitrite Ur Leukocyte Esterase Urine RBC Urine WBC Ur Squamous Epith Cells Amorphous Sediment Urine Bacteria Hyaline Casts Urine Mucus COVID-19 ([facility]) COVID-19 Clin Com 04/17/21 04/17/21 04/17/21 17:51 17:56 19:05 WBC RBC Hgb Hct MCV MCH MCHC RDW Plt Count MPV Immature Gran % (Auto) Neut % (Auto) Lymph % (Auto) [place] % (Auto) Eos % (Auto) Baso % (Auto) Lymph # (Auto) [place] # (Auto) Eos # (Auto) Baso # (Auto) Abs Immat Gran (auto) Absolute Neuts (auto) Absolute Nucleated RBC Nucleated RBC % (auto) PT 13.4 H INR 1.2 H APTT 37.7 Sodium Potassium Chloride Carbon Dioxide Anion Gap BUN Creatinine Estim Creat Clear Calc Estimated GFR Random Glucose Lactic Acid Calcium Total Bilirubin Direct Bilirubin AST ALT Alkaline Phosphatase Total Protein Albumin Lipase Urine Color DK YELLOW Urine Appearance HAZY Urine pH 5.5 Ur Specific [place] 1.020 Urine Protein 1+ H Urine Glucose (UA) NEG Urine Ketones NEG Urine Blood NEG Urine Nitrite NEG Ur Leukocyte Esterase NEG Urine RBC 0-2 Urine WBC 1-4 Ur Squamous Epith Cells 2+ Amorphous Sediment 2+ Urine Bacteria NONE Hyaline Casts 0-2 Urine Mucus 2+ COVID-19 ([facility]) Negative COVID-19 Clin Com See Note 04/18/21 04/18/21 05:25 05:25 WBC 7.8 RBC 4.13 L Hgb 11.5 L Hct 37.6 L MCV 91.0 MCH 27.8 MCHC 30.6 L RDW 13.8 Plt Count 179 MPV 10.2 Immature Gran % (Auto) 0.4 Neut % (Auto) 68.5 Lymph % (Auto) 16.8 L [place] % (Auto) 11.9 H Eos % (Auto) 1.8 Baso % (Auto) 0.6 Lymph # (Auto) 1.3 [place] # (Auto) 0.9 Eos # (Auto) 0.1 Baso # (Auto) 0.1 Abs Immat Gran (auto) 0.03 Absolute Neuts (auto) 5.4 Absolute Nucleated RBC 0.000 Nucleated RBC % (auto) 0.0 PT INR APTT Sodium 139 Potassium 3.7 Chloride 104 Carbon Dioxide 25 Anion Gap 14 BUN 15 Creatinine 0.90 Estim Creat Clear Calc 136.1 Estimated GFR > 60 Random Glucose 98 Lactic Acid Calcium 8.7 D Total Bilirubin 1.0 Direct Bilirubin 0.4 AST 170 H ALT 207 H Alkaline Phosphatase 191 H D Total Protein 5.8 L Albumin 3.4 L Lipase Urine Color Urine Appearance Urine pH Ur Specific [place] Urine Protein Urine Glucose (UA) Urine Ketones Urine Blood Urine Nitrite Ur Leukocyte Esterase Urine RBC Urine WBC Ur Squamous Epith Cells Amorphous Sediment Urine Bacteria Hyaline Casts Urine Mucus COVID-19 ([facility]) COVID-19 Clin Com
[2021-04-18] MEDS: Metoprolol Succinate ER 50 MG TAB.ER.24H PO (08:14)
[2021-04-18] MEDS: 0.9 % Sodium Chloride Flush 3 ML SYRINGE IVFLUSH ×2 (08:15→16:28)
--- NOTE | 2021-04-18 08:29 | PM.ANESCN ---
[facility] Past Medical History Medical History Alcohol dependence Cellulitis and abscess of leg, except foot Chronic alcoholism Chronic pain syndrome Combinations of drug dependence excluding opioid type drug Depressive disorder Hamstring tightness Post-traumatic osteoarthritis of right knee Venous insufficiency of right lower extremity Functional capacity: independent ambulation Family History Family History Father No problems noted. Mother No problems noted. Surgical History Surgical History History of ankle surgery History of vasectomy History of Problems with Anesthesia: No Social History Social History Household Members: Family Housing: House Do you presently have visiting nurse or other home services: No Patient Tobacco Use Status: Current everyday Tobacco user Tobacco use type: Cigarette Cigarette Packs Per Day: 0.5 Cigarettes Per Day: 10.0 Years Smoked: 36 Second Hand Smoke Exposure: Yes Advance Directives Date on File: 04/17/21 Current occupational status: disabled Current occupation: Right Handed Meds Allergies Allergy/AdvReac Type Severity Reaction Status Date / Time disulfiram [From ANTABUSE] Allergy Unknown SWELLING Verified 03/29/20 09:08 Active Medications: Current Medications Escitalopram Oxalate (Escitalopram Oxalate 10 Mg Tablet) 10 mg PO DAILY [facility] Last Admin: 04/18/21 08:18 Dose: Not Given Documented by: Folic Acid (Folic Acid 1 Mg Tablet) 1 mg PO DAILY [facility] Last Admin: 04/18/21 08:18 Dose: Not Given Documented by: Furosemide (Furosemide 40 Mg Tablet) 80 mg PO DAILY [facility]; Protocol Last Admin: 04/18/21 08:19 Dose: Not Given Documented by: Gabapentin (Gabapentin 400 Mg Capsule) 2,400 mg PO DAILY [facility] Last Admin: 04/18/21 08:19 Dose: Not Given Documented by: Hydromorphone HCl (Hydromorphone Hcl 1 Mg/Ml Syringe) 0.5 mg IVPUSH Q3H PRN; Protocol PRN Reason: Pain, Severe (Pain Scale 7-10) Last Admin: 04/18/21 08:15 Dose: 0.5 mg Documented by: Sodium Chloride (Ns) 1,000 mls @ 80 mls/hr IVCONT .[id number] [facility] Last Admin: 04/18/21 06:29 Dose: Not Given Documented by: Piperacillin Sod/Tazobactam (Sod 3.375 gm/ Sodium Chloride) 50 mls @ 100 mls/hr IV Q6H [facility] Last Infusion: 04/18/21 06:29 Dose: Infused Documented by: Latanoprost (Latanoprost 0.005 % Ophth Shirley 2.5 Ml Drops) 1 drop EYE-BOTH DAILY [facility] Last Admin: 04/18/21 08:19 Dose: Not Given Documented by: Metoprolol Succinate (Metoprolol Succinate Er 50 Mg Tab.Er.24h) 50 mg PO DAILY [facility]; Protocol Last Admin: 04/18/21 08:14 Dose: 50 mg Documented by: Omeprazole (Omeprazole 40 Mg Capsule.Dr) 40 mg PO DAILY@0630 [facility] Last Admin: 04/18/21 05:18 Dose: 40 mg Documented by: Ondansetron HCl (Ondansetron Hcl 4 Mg/2 Ml Vial) 4 mg IVPUSH Q8H PRN PRN Reason: Nausea and Vomiting Sodium Chloride (0.9 % Sodium Chloride Flush 3 Ml Syringe) 3 ml IVFLUSH QSHIFT [facility] Last Admin: 04/18/21 08:15 Dose: 3 ml Documented by: Tamsulosin HCl (Tamsulosin Hcl 0.4 Mg Capsule) 0.4 mg PO DAILY [facility] Last Admin: 04/18/21 08:19 Dose: Not Given Documented by: Thiamine HCl (Thiamine Hcl 100 Mg Tablet) 100 mg PO DAILY [facility] Last Admin: 04/18/21 08:19 Dose: Not Given Documented by: Topiramate (Topiramate 25 Mg Tablet) 50 mg PO BEDTIME [facility] Last Admin: 04/17/21 22:04 Dose: 50 mg Documented by: Verapamil HCl (Verapamil Hcl Sr 100 Mg Cap24h.Pct) 200 mg PO BEDTIME [facility]; Protocol Last Admin: 04/17/21 22:04 Dose: 200 mg Documented by: Home Medications Medication Instructions Recorded Confirmed Last Taken Type atorvastatin 20 mg tablet 20 mg PO BEDTIME 11/26/19 04/17/21 04/16/21 History folic acid 1 mg tablet 1 mg PO DAILY 11/26/19 04/17/21 04/17/21 History furosemide 80 mg tablet (Lasix) 80 mg PO DAILY 11/26/19 04/17/21 04/17/21 History acetaminophen 500 mg tablet 2 tab PO Q8H PRN 04/17/21 04/17/21 Unknown History capsaicin 0.075 % topical cream 1 appl TOPICAL TID 04/17/21 04/17/21 Unknown History (Arthritis Pain Relief (capsaicin)) cyanocobalamin (vitamin B-12) 100 0.5 tab PO QAM 04/17/21 04/17/21 04/17/21 History mcg tablet escitalopram oxalate 10 mg tablet 1 tab PO QAM 04/17/21 04/17/21 04/17/21 History gabapentin 800 mg tablet 3 tab PO QAM 04/17/21 04/17/21 04/17/21 History latanoprost 0.005 % eye drops 1 drp OPHTHALMIC (EYE) DAILY 04/17/21 04/17/21 04/17/21 History metoprolol succinate 50 mg 1 tab PO QAM 04/17/21 04/17/21 04/17/21 History tablet,extended release 24 hr multivitamin 1 tab PO DAILY 04/17/21 04/17/21 04/17/21 History oxycodone 5 mg tablet 1 tab PO DAILY PRN 04/17/21 04/17/21 Unknown History pantoprazole 40 mg tablet,delayed 1 tab PO QAM 04/17/21 04/17/21 04/17/21 History release tamsulosin 0.4 mg capsule 1 cap PO QAM 04/17/21 04/17/21 04/17/21 History testosterone 20.25 mg/1.25 gram 1 pump TOPICAL QAM 04/17/21 04/17/21 Unknown History (1.62 %) transdermal gel pump (AndroGel) thiamine HCl (vitamin B1) 100 mg 1 tab PO QAM 04/17/21 04/17/21 04/17/21 History tablet topiramate 50 mg tablet 1 tab PO BEDTIME 04/17/21 04/17/21 04/16/21 History varenicline 1 mg tablet 1 tab PO BID 04/17/21 04/17/21 04/16/21 History verapamil 200 mg capsule 24hr 1 cap PO BEDTIME 04/17/21 04/17/21 04/16/[address],ext[address]release Physical Exam Vital Signs: Vital Signs: Last Vital Signs Temp 97.6 F 04/18/21 07:45 Pulse 78 04/18/21 07:45 Resp 15 04/18/21 07:45 BP 99/68 04/18/21 07:45 Pulse Ox 97 04/18/21 07:45 BMI result Body Mass Index 35.7 Results Labs Result diagrams: 04/18/21 05:25 04/18/21 05:25 Labs: Abnormal lab results 04/17/21 04/17/21 04/17/21 Range/Units 11:59 17:51 17:56 WBC 11.5 H (4.8-10.8) X10*3/uL RBC (4.60-5.80) X10*6/uL Hgb (14.0-18.0) g/dl Hct (42.0-52.0) % MCHC (31.0-36.0) g/dl Lymph % (Auto) 16.9 L (20-40) % [place] % (Auto) (2-11) % Abs Immat Gran (auto) 0.04 H (0.00-0.03) X10*3/uL PT 13.4 H (9.9-13.0) SEC INR 1.2 H (0.9-1.1) AST (5-37) U/L ALT (0-40) U/L Alkaline Phosphatase (39-117) U/L Total Protein (6.5-8.0) g/dL Albumin (3.5-5.0) g/dL Urine Protein 1+ H (NEG-TRACE) MG/DL 04/18/21 04/18/21 Range/Units 05:25 05:25 WBC (4.8-10.8) X10*3/uL RBC 4.13 L (4.60-5.80) X10*6/uL Hgb 11.5 L (14.0-18.0) g/dl Hct 37.6 L (42.0-52.0) % MCHC 30.6 L (31.0-36.0) g/dl Lymph % (Auto) 16.8 L (20-40) % [place] % (Auto) 11.9 H (2-11) % Abs Immat Gran (auto) (0.00-0.03) X10*3/uL PT (9.9-13.0) SEC INR (0.9-1.1) AST 170 H (5-37) U/L ALT 207 H (0-40) U/L Alkaline Phosphatase 191 H D (39-117) U/L Total Protein 5.8 L (6.5-8.0) g/dL Albumin 3.4 L (3.5-5.0) g/dL Urine Protein (NEG-TRACE) MG/DL Short CBC 04/17/21 04/18/21 Range/Units 11:59 05:25 WBC 11.5 H 7.8 (4.8-10.8) X10*3/uL Hgb 14.3 11.5 L (14.0-18.0) g/dl Hct 44.3 37.6 L (42.0-52.0) % Plt Count 206 179 (160-400) X10*3/uL BMP 04/17/21 04/18/21 11:59 05:25 Sodium 139 139 Potassium 3.6 3.7 Chloride 99 104 Carbon Dioxide 29 25 BUN 15 15 Creatinine 1.07 0.90 Calcium 9.7 8.7 D Liver Function 04/17/21 04/18/21 Range/Units 11:59 05:25 Total Bilirubin 0.7 1.0 (0.0-1.0) mg/dL Direct Bilirubin 0.4 (0.0-0.5) mg/dL AST 15 170 H (5-37) U/L ALT 15 207 H (0-40) U/L Alkaline Phosphatase 78 191 H D (39-117) U/L Albumin 4.2 3.4 L (3.5-5.0) g/dL Urine 04/17/21 Range/Units 17:51 Urine Color DK YELLOW Urine Appearance HAZY Urine pH 5.5 (5.0-8.0) Ur Specific [place] 1.020 (1.005-1.025) Urine Protein 1+ H (NEG-TRACE) MG/DL Urine Glucose (UA) NEG (NEG) MG/DL All other labs normal.
--- NOTE | 2021-04-18 08:56 | PM.PNGS ---
Subjective Subjective Date of Service: 04/18/21 Interval history: He says he continues to have significant right upper quadrant pain and tenderness no nausea or vomiting Physical Exam Vital Signs: Vital Signs: Last Vital Signs Temp 97.6 F 04/18/21 07:45 Pulse 78 04/18/21 07:45 Resp 15 04/18/21 07:45 BP 99/68 04/18/21 07:45 Pulse Ox 97 04/18/21 07:45 BMI result Body Mass Index 35.7 Const: General: comfortable and no acute distress Resp: Effort & Inspection: normal respiratory effort Cardio: Rate: regular rate GI: Other: soft but tender in right upper quadrant, positive Escobar's sign Objective Data Active Medications Escitalopram Oxalate (Escitalopram Oxalate 10 Mg Tablet) 10 mg PO DAILY [facility] Last Admin: 04/18/21 08:18 Dose: Not Given Documented by: JILL Non-Admin Reason: Off Unit: Surgery Folic Acid (Folic Acid 1 Mg Tablet) 1 mg PO DAILY [facility] Last Admin: 04/18/21 08:18 Dose: Not Given Documented by: JILL Non-Aida Reason: Off Unit: Surgery Furosemide (Furosemide 40 Mg Tablet) 80 mg PO DAILY [facility]; Protocol Last Admin: 04/18/21 08:19 Dose: Not Given Documented by: JILL Non-Admin Reason: Off Unit: Surgery Gabapentin (Gabapentin 400 Mg Capsule) 2,400 mg PO DAILY [facility] Last Admin: 04/18/21 08:19 Dose: Not Given Documented by: JILL Non-Admin Reason: Off Unit: Surgery Hydromorphone HCl (Hydromorphone Hcl 1 Mg/Ml Syringe) 0.5 mg IVPUSH Q3H PRN; Protocol PRN Reason: Pain, Severe (Pain Scale 7-10) Last Admin: 04/18/21 08:15 Dose: 0.5 mg Documented by: JILL Sodium Chloride (Ns) 1,000 mls @ 80 mls/hr IVCONT .[id number] [facility] Last Admin: 04/18/21 06:29 Dose: Not Given Documented by: MADELEINE Non-Admin Reason: IV Running Piperacillin Sod/Tazobactam (Sod 3.375 gm/ Sodium Chloride) 50 mls @ 100 mls/hr IV Q6H [facility] Last Infusion: 04/18/21 06:29 Dose: 0 mls/hr Documented by: MADELEINE Latanoprost (Latanoprost 0.005 % Ophth Shirley 2.5 Ml Drops) 1 drop EYE-BOTH DAILY [facility] Last Admin: 04/18/21 08:19 Dose: Not Given Documented by: JILL Non-Admin Reason: Off Unit: Surgery Metoprolol Succinate (Metoprolol Succinate Er 50 Mg Tab.Er.24h) 50 mg PO DAILY [facility]; Protocol Last Admin: 04/18/21 08:14 Dose: 50 mg Documented by: JILL Omeprazole (Omeprazole 40 Mg Capsule.Dr) 40 mg PO DAILY@0630 [facility] Last Admin: 04/18/21 05:18 Dose: 40 mg Documented by: MADELEINE Ondansetron HCl (Ondansetron Hcl 4 Mg/2 Ml Vial) 4 mg IVPUSH Q8H PRN PRN Reason: Nausea and Vomiting Sodium Chloride (0.9 % Sodium Chloride Flush 3 Ml Syringe) 3 ml IVFLUSH QSHIFT [facility] Last Admin: 04/18/21 08:15 Dose: 3 ml Documented by: JILL Tamsulosin HCl (Tamsulosin Hcl 0.4 Mg Capsule) 0.4 mg PO DAILY [facility] Last Admin: 04/18/21 08:19 Dose: Not Given Documented by: JILL Non-Admin Reason: Off Unit: Surgery Thiamine HCl (Thiamine Hcl 100 Mg Tablet) 100 mg PO DAILY [facility] Last Admin: 04/18/21 08:19 Dose: Not Given Documented by: JILL Non-Admin Reason: Off Unit: Surgery Topiramate (Topiramate 25 Mg Tablet) 50 mg PO BEDTIME [facility] Last Admin: 04/17/21 22:04 Dose: 50 mg Documented by: NICOLE Verapamil HCl (Verapamil Hcl Sr 100 Mg Cap24h.Pct) 200 mg PO BEDTIME [facility]; Protocol Last Admin: 04/17/21 22:04 Dose: 200 mg Documented by: NICOLE Labs CBC & Chem 7: 04/18/21 05:25 04/18/21 05:25 Labs: Laboratory Results - last 24 hr 04/17/21 04/17/21 04/17/21 11:59 11:59 15:06 MCV 89.1 MCH 28.8 MCHC 32.3 RDW 14.0 Plt Count 206 MPV 9.8 Immature Gran % (Auto) 0.3 Neut % (Auto) 71.7 Lymph % (Auto) 16.9 L [place] % (Auto) 9.6 Eos % (Auto) 1.0 Baso % (Auto) 0.5 Lymph # (Auto) 1.9 [place] # (Auto) 1.1 Eos # (Auto) 0.1 Baso # (Auto) 0.1 Abs Immat Gran (auto) 0.04 H Absolute Neuts (auto) 8.3 Absolute Nucleated RBC 0.000 Nucleated RBC % (auto) 0.0 PT INR APTT Anion Gap 15 Estim Creat Clear Calc 114.5 Estimated GFR > 60 Random Glucose 109 Lactic Acid 0.9 Calcium 9.7 Total Bilirubin 0.7 Direct Bilirubin AST 15 ALT 15 Alkaline Phosphatase 78 Total Protein 7.2 Albumin 4.2 Lipase 14 Urine Color Urine Appearance Urine pH Ur Specific [place] Urine Protein Urine Glucose (UA) Urine Ketones Urine Blood Urine Nitrite Ur Leukocyte Esterase Urine RBC Urine WBC Ur Squamous Epith Cells Amorphous Sediment Urine Bacteria Hyaline Casts Urine Mucus COVID-19 ([facility]) COVID-19 Clin Com 04/17/21 04/17/21 04/17/21 17:51 17:56 19:05 MCV MCH MCHC RDW Plt Count MPV Immature Gran % (Auto) Neut % (Auto) Lymph % (Auto) [place] % (Auto) Eos % (Auto) Baso % (Auto) Lymph # (Auto) [place] # (Auto) Eos # (Auto) Baso # (Auto) Abs Immat Gran (auto) Absolute Neuts (auto) Absolute Nucleated RBC Nucleated RBC % (auto) PT 13.4 H INR 1.2 H APTT 37.7 Anion Gap Estim Creat Clear Calc Estimated GFR Random Glucose Lactic Acid Calcium Total Bilirubin Direct Bilirubin AST ALT Alkaline Phosphatase Total Protein Albumin Lipase Urine Color DK YELLOW Urine Appearance HAZY Urine pH 5.5 Ur Specific [place] 1.020 Urine Protein 1+ H Urine Glucose (UA) NEG Urine Ketones NEG Urine Blood NEG Urine Nitrite NEG Ur Leukocyte Esterase NEG Urine RBC 0-2 Urine WBC 1-4 Ur Squamous Epith Cells 2+ Amorphous Sediment 2+ Urine Bacteria NONE Hyaline Casts 0-2 Urine Mucus 2+ COVID-19 ([facility]) Negative COVID-19 Clin Com See Note 04/18/21 04/18/21 05:25 05:25 MCV 91.0 MCH 27.8 MCHC 30.6 L RDW 13.8 Plt Count 179 MPV 10.2 Immature Gran % (Auto) 0.4 Neut % (Auto) 68.5 Lymph % (Auto) 16.8 L [place] % (Auto) 11.9 H Eos % (Auto) 1.8 Baso % (Auto) 0.6 Lymph # (Auto) 1.3 [place] # (Auto) 0.9 Eos # (Auto) 0.1 Baso # (Auto) 0.1 Abs Immat Gran (auto) 0.03 Absolute Neuts (auto) 5.4 Absolute Nucleated RBC 0.000 Nucleated RBC % (auto) 0.0 PT INR APTT Anion Gap 14 Estim Creat Clear Calc 136.1 Estimated GFR > 60 Random Glucose 98 Lactic Acid Calcium 8.7 D Total Bilirubin 1.0 Direct Bilirubin 0.4 AST 170 H ALT 207 H Alkaline Phosphatase 191 H D Total Protein 5.8 L Albumin 3.4 L Lipase Urine Color Urine Appearance Urine pH Ur Specific [place] Urine Protein Urine Glucose (UA) Urine Ketones Urine Blood Urine Nitrite Ur Leukocyte Esterase Urine RBC Urine WBC Ur Squamous Epith Cells Amorphous Sediment Urine Bacteria Hyaline Casts Urine Mucus COVID-19 ([facility]) COVID-19 Clin Com Procedures Date of Service Date of Service: 04/18/21 Progress Note: A&P Assessment and plan (1) Acute acalculous cholecystitis: Status: Acute Assessment and Plan: I reviewed his imaging studies with the radiologist Dr. Alvarenga - significant gallbladder distension, thickening of the gallbladder wall with pericholecystic stranding consistent with acute cholecystitis no visible gallstones, no CBD dilatation WBC normal LFTs bump in AST and ALT likely due to inflammatory process in the gallbladder; bilirubin normal in view of his persistent pain, he wants to proceed with cholecystectomy he understands the technique of laparoscopic cholecystectomy, possible open he is aware of the risks including but not limited to bleeding, infections, injury to other organs, bile leak, inherent risks of anesthesia, as well as the benefits and alternatives he has given consent patient seen by hospitalist service Fall Risk Details Current Medications: Current Medications Escitalopram Oxalate (Escitalopram Oxalate 10 Mg Tablet) 10 mg PO DAILY [facility] Last Admin: 04/18/21 08:18 Dose: Not Given Documented by: Folic Acid (Folic Acid 1 Mg Tablet) 1 mg PO DAILY [facility] Last Admin: 04/18/21 08:18 Dose: Not Given Documented by: Furosemide (Furosemide 40 Mg Tablet) 80 mg PO DAILY [facility]; Protocol Last Admin: 04/18/21 08:19 Dose: Not Given Documented by: Gabapentin (Gabapentin 400 Mg Capsule) 2,400 mg PO DAILY [facility] Last Admin: 04/18/21 08:19 Dose: Not Given Documented by: Hydromorphone HCl (Hydromorphone Hcl 1 Mg/Ml Syringe) 0.5 mg IVPUSH Q3H PRN; Protocol PRN Reason: Pain, Severe (Pain Scale 7-10) Last Admin: 04/18/21 08:15 Dose: 0.5 mg Documented by: Sodium Chloride (Ns) 1,000 mls @ 80 mls/hr IVCONT .[id number] [facility] Last Admin: 04/18/21 06:29 Dose: Not Given Documented by: Piperacillin Sod/Tazobactam (Sod 3.375 gm/ Sodium Chloride) 50 mls @ 100 mls/hr IV Q6H [facility] Last Infusion: 04/18/21 06:29 Dose: Infused Documented by: Latanoprost (Latanoprost 0.005 % Ophth [place] 2.5 Ml Drops) 1 drop EYE-BOTH DAILY [facility] Last Admin: 04/18/21 08:19 Dose: Not Given Documented by: Metoprolol Succinate (Metoprolol Succinate Er 50 Mg Tab.Er.24h) 50 mg PO DAILY [facility]; Protocol Last Admin: 04/18/21 08:14 Dose: 50 mg Documented by: Omeprazole (Omeprazole 40 Mg Capsule.Dr) 40 mg PO DAILY@0630 [facility] Last Admin: 04/18/21 05:18 Dose: 40 mg Documented by: Ondansetron HCl (Ondansetron Hcl 4 Mg/2 Ml Vial) 4 mg IVPUSH Q8H PRN PRN Reason: Nausea and Vomiting Sodium Chloride (0.9 % Sodium Chloride Flush 3 Ml Syringe) 3 ml IVFLUSH QSHIFT [facility] Last Admin: 04/18/21 08:15 Dose: 3 ml Documented by: Tamsulosin HCl (Tamsulosin Hcl 0.4 Mg Capsule) 0.4 mg PO DAILY [facility] Last Admin: 04/18/21 08:19 Dose: Not Given Documented by: Thiamine HCl (Thiamine Hcl 100 Mg Tablet) 100 mg PO DAILY [facility] Last Admin: 04/18/21 08:19 Dose: Not Given Documented by: Topiramate (Topiramate 25 Mg Tablet) 50 mg PO BEDTIME [facility] Last Admin: 04/17/21 22:04 Dose: 50 mg Documented by: Verapamil HCl (Verapamil Hcl Sr 100 Mg Cap24h.Pct) 200 mg PO BEDTIME [facility]; Protocol Last Admin: 04/17/21 22:04 Dose: 200 mg Documented by: Time Spent With Patient Time: Total time spent is greater than 50% in coordination of care (as documented) at patient's floor/unit and/or counseling patient: Time with patient: 15 - 24 minutes Quality Stroke Does the patient have a stroke diagnosis?: No VTE Prior VTE?: No VTE Risk Level:: Medical - moderate - high VTE Device Contraindication: N/A - Device Ordered VTE Drug Contraindication: N/A - Med Ordered
--- NOTE | 2021-04-18 09:19 | P.CONAN_ITS ---
[facility] Active Problems Active Problems: All Active Problems (Updated 04/17/21 @ 18:26 by Jami Callahan MD) Diastolic CHF (Acute) Acute acalculous cholecystitis (Acute) PAD (peripheral artery disease) (Acute) Hamstring tightness (Acute) Chronic alcoholism (Acute) Chronic pain syndrome (Acute) Venous insufficiency of right lower extremity (Acute) Post-traumatic osteoarthritis of right knee (Acute) Past Medical History Medical History Alcohol dependence Cellulitis and abscess of leg, except foot Chronic alcoholism Chronic pain syndrome Combinations of drug dependence excluding opioid type drug Depressive disorder Hamstring tightness Post-traumatic osteoarthritis of right knee Venous insufficiency of right lower extremity Functional capacity: independent ambulation Family History Family History Father No problems noted. Mother No problems noted. Family history of problems with anesthesia: No Surgical History Surgical History History of ankle surgery History of vasectomy History of Problems with Anesthesia: No Social History Social History Household Members: Family Housing: House Do you presently have visiting nurse or other home services: No Patient Tobacco Use Status: Current everyday Tobacco user Tobacco use type: Cigarette Cigarette Packs Per Day: 0.5 Cigarettes Per Day: 10 Years Smoked: 36 Second Hand Smoke Exposure: Yes Advance Directives Date on File: 04/17/21 Current occupational status: disabled Current occupation: Right Handed Meds Allergies Allergy/AdvReac Type Severity Reaction Status Date / Time disulfiram [From ANTABUSE] Allergy Unknown SWELLING Verified 04/18/21 09:15 Active Medications: Current Medications Escitalopram Oxalate (Escitalopram Oxalate 10 Mg Tablet) 10 mg PO DAILY ON LICENSE OF [facility] Last Admin: 04/18/21 08:18 Dose: Not Given Documented by: Folic Acid (Folic Acid 1 Mg Tablet) 1 mg PO DAILY ON LICENSE OF [facility] Last Admin: 04/18/21 08:18 Dose: Not Given Documented by: Furosemide (Furosemide 40 Mg Tablet) 80 mg PO DAILY ON LICENSE OF [facility]; Protocol Last Admin: 04/18/21 08:19 Dose: Not Given Documented by: Gabapentin (Gabapentin 400 Mg Capsule) 2,400 mg PO DAILY ON LICENSE OF [facility] Last Admin: 04/18/21 08:19 Dose: Not Given Documented by: Hydromorphone HCl (Hydromorphone Hcl 1 Mg/Ml Syringe) 0.5 mg IVPUSH Q3H PRN; Protocol PRN Reason: Pain, Severe (Pain Scale 7-10) Last Admin: 04/18/21 08:15 Dose: 0.5 mg Documented by: Sodium Chloride (Ns) 1,000 mls @ 80 mls/hr IVCONT .[id number] ON LICENSE OF [facility] Last Admin: 04/18/21 06:29 Dose: Not Given Documented by: Piperacillin Sod/Tazobactam (Sod 3.375 gm/ Sodium Chloride) 50 mls @ 100 mls/hr IV Q6H ON LICENSE OF [facility] Last Infusion: 04/18/21 06:29 Dose: Infused Documented by: Cefotetan Disodium 2 gm/ (Sodium Chloride) 50 mls @ 100 mls/hr IV PREOP ONE Stop: 04/18/21 09:41 Latanoprost (Latanoprost 0.005 % Ophth Shirley 2.5 Ml Drops) 1 drop EYE-BOTH DAILY ON LICENSE OF [facility] Last Admin: 04/18/21 08:19 Dose: Not Given Documented by: Metoprolol Succinate (Metoprolol Succinate Er 50 Mg Tab.Er.24h) 50 mg PO DAILY ON LICENSE OF [facility]; Protocol Last Admin: 04/18/21 08:14 Dose: 50 mg Documented by: Omeprazole (Omeprazole 40 Mg Capsule.Dr) 40 mg PO DAILY@0630 ON LICENSE OF [facility] Last Admin: 04/18/21 05:18 Dose: 40 mg Documented by: Ondansetron HCl (Ondansetron Hcl 4 Mg/2 Ml Vial) 4 mg IVPUSH Q8H PRN PRN Reason: Nausea and Vomiting Sodium Chloride (0.9 % Sodium Chloride Flush 3 Ml Syringe) 3 ml IVFLUSH QSHIFT ON LICENSE OF [facility] Last Admin: 04/18/21 08:15 Dose: 3 ml Documented by: Tamsulosin HCl (Tamsulosin Hcl 0.4 Mg Capsule) 0.4 mg PO DAILY ON LICENSE OF [facility] Last Admin: 04/18/21 08:19 Dose: Not Given Documented by: Thiamine HCl (Thiamine Hcl 100 Mg Tablet) 100 mg PO DAILY ON LICENSE OF [facility] Last Admin: 04/18/21 08:19 Dose: Not Given Documented by: Topiramate (Topiramate 25 Mg Tablet) 50 mg PO BEDTIME KIKI Last Admin: 04/17/21 22:04 Dose: 50 mg Documented by: Verapamil HCl (Verapamil Hcl Sr 100 Mg Cap24h.Pct) 200 mg PO BEDTIME KIKI; Protocol Last Admin: 04/17/21 22:04 Dose: 200 mg Documented by: Home Medications Medication Instructions Recorded Confirmed Last Taken Type atorvastatin 20 mg tablet 20 mg PO BEDTIME 11/26/19 04/17/21 04/16/21 History folic acid 1 mg tablet 1 mg PO DAILY 11/26/19 04/17/21 04/17/21 History furosemide 80 mg tablet (Lasix) 80 mg PO DAILY 11/26/19 04/17/21 04/17/21 History acetaminophen 500 mg tablet 2 tab PO Q8H PRN 04/17/21 04/17/21 Unknown History capsaicin 0.075 % topical cream 1 appl TOPICAL TID 04/17/21 04/17/21 Unknown History (Arthritis Pain Relief (capsaicin)) cyanocobalamin (vitamin B-12) 100 0.5 tab PO QAM 04/17/21 04/17/21 04/17/21 History mcg tablet escitalopram oxalate 10 mg tablet 1 tab PO QAM 04/17/21 04/17/21 04/17/21 History gabapentin 800 mg tablet 3 tab PO QAM 04/17/21 04/17/21 04/17/21 History latanoprost 0.005 % eye drops 1 drp OPHTHALMIC (EYE) DAILY 04/17/21 04/17/21 04/17/21 History metoprolol succinate 50 mg 1 tab PO QAM 04/17/21 04/17/21 04/17/21 History tablet,extended release 24 hr multivitamin 1 tab PO DAILY 04/17/21 04/17/21 04/17/21 History oxycodone 5 mg tablet 1 tab PO DAILY PRN 04/17/21 04/17/21 Unknown History pantoprazole 40 mg tablet,delayed 1 tab PO QAM 04/17/21 04/17/21 04/17/21 History release tamsulosin 0.4 mg capsule 1 cap PO QAM 04/17/21 04/17/21 04/17/21 History testosterone 20.25 mg/1.25 gram 1 pump TOPICAL QAM 04/17/21 04/17/21 Unknown History (1.62 %) transdermal gel pump (AndroGel) thiamine HCl (vitamin B1) 100 mg 1 tab PO QAM 04/17/21 04/17/21 04/17/21 History tablet topiramate 50 mg tablet 1 tab PO BEDTIME 04/17/21 04/17/21 04/16/21 History varenicline 1 mg tablet 1 tab PO BID 04/17/21 04/17/21 04/16/21 History verapamil 200 mg capsule 24hr 1 cap PO BEDTIME 04/17/21 04/17/21 04/16/[address],ext.release Exam Exam Date and Time: April 18, [id number] Height,Weight and Vital Signs: Height 6 ft 3 in Weight 129.727 kg Last Vital Signs Temp 97.6 F 04/18/21 07:45 Pulse 78 04/18/21 07:45 Resp 15 04/18/21 07:45 BP 99/68 04/18/21 07:45 Pulse Ox 97 04/18/21 07:45 Pertinent Lab Results Pertinent Lab Results: Laboratory Tests 04/17/21 04/17/21 04/17/21 11:59 11:59 15:06 WBC 11.5 H RBC 4.97 Hgb 14.3 Hct 44.3 MCV 89.1 MCH 28.8 MCHC 32.3 RDW 14.0 Plt Count 206 MPV 9.8 Immature Gran % (Auto) 0.3 Neut % (Auto) 71.7 Lymph % (Auto) 16.9 L Lucas % (Auto) 9.6 Eos % (Auto) 1.0 Baso % (Auto) 0.5 Lymph # (Auto) 1.9 Lucas # (Auto) 1.1 Eos # (Auto) 0.1 Baso # (Auto) 0.1 Abs Immat Gran (auto) 0.04 H Absolute Neuts (auto) 8.3 Absolute Nucleated RBC 0.000 Nucleated RBC % (auto) 0.0 PT INR APTT Sodium 139 Potassium 3.6 Chloride 99 Carbon Dioxide 29 Anion Gap 15 BUN 15 Creatinine 1.07 Estim Creat Clear Calc 114.5 Estimated GFR > 60 Random Glucose 109 Lactic Acid 0.9 Calcium 9.7 Total Bilirubin 0.7 Direct Bilirubin AST 15 ALT 15 Alkaline Phosphatase 78 Total Protein 7.2 Albumin 4.2 Lipase 14 Urine Color Urine Appearance Urine pH Ur Specific [place] Urine Protein Urine Glucose (UA) Urine Ketones Urine Blood Urine Nitrite Ur Leukocyte Esterase Urine RBC Urine WBC Ur Squamous Epith Cells Amorphous Sediment Urine Bacteria Hyaline Casts Urine Mucus COVID-19 (MACK) COVID-19 Clin Com 04/17/21 04/17/21 04/17/21 17:51 17:56 19:05 WBC RBC Hgb Hct MCV MCH MCHC RDW Plt Count MPV Immature Gran % (Auto) Neut % (Auto) Lymph % (Auto) Lucas % (Auto) Eos % (Auto) Baso % (Auto) Lymph # (Auto) Lucas # (Auto) Eos # (Auto) Baso # (Auto) Abs Immat Gran (auto) Absolute Neuts (auto) Absolute Nucleated RBC Nucleated RBC % (auto) PT 13.4 H INR 1.2 H APTT 37.7 Sodium Potassium Chloride Carbon Dioxide Anion Gap BUN Creatinine Estim Creat Clear Calc Estimated GFR Random Glucose Lactic Acid Calcium Total Bilirubin Direct Bilirubin AST ALT Alkaline Phosphatase Total Protein Albumin Lipase Urine Color DK YELLOW Urine Appearance HAZY Urine pH 5.5 Ur Specific Peak 1.020 Urine Protein 1+ H Urine Glucose (UA) NEG Urine Ketones NEG Urine Blood NEG Urine Nitrite NEG Ur Leukocyte Esterase NEG Urine RBC 0-2 Urine WBC 1-4 Ur Squamous Epith Cells 2+ Amorphous Sediment 2+ Urine Bacteria NONE Hyaline Casts 0-2 Urine Mucus 2+ COVID-19 (MACK) Negative COVID-19 Clin Com See Note 04/18/21 04/18/21 05:25 05:25 WBC 7.8 RBC 4.13 L Hgb 11.5 L Hct 37.6 L MCV 91.0 MCH 27.8 MCHC 30.6 L RDW 13.8 Plt Count 179 MPV 10.2 Immature Gran % (Auto) 0.4 Neut % (Auto) 68.5 Lymph % (Auto) 16.8 L Lucas % (Auto) 11.9 H Eos % (Auto) 1.8 Baso % (Auto) 0.6 Lymph # (Auto) 1.3 Lucas # (Auto) 0.9 Eos # (Auto) 0.1 Baso # (Auto) 0.1 Abs Immat Gran (auto) 0.03 Absolute Neuts (auto) 5.4 Absolute Nucleated RBC 0.000 Nucleated RBC % (auto) 0.0 PT INR APTT Sodium 139 Potassium 3.7 Chloride 104 Carbon Dioxide 25 Anion Gap 14 BUN 15 Creatinine 0.90 Estim Creat Clear Calc 136.1 Estimated GFR > 60 Random Glucose 98 Lactic Acid Calcium 8.7 D Total Bilirubin 1.0 Direct Bilirubin 0.4 AST 170 H ALT 207 H Alkaline Phosphatase 191 H D Total Protein 5.8 L Albumin 3.4 L Lipase Urine Color Urine Appearance Urine pH Ur Specific [place] Urine Protein Urine Glucose (UA) Urine Ketones Urine Blood Urine Nitrite Ur Leukocyte Esterase Urine RBC Urine WBC Ur Squamous Epith Cells Amorphous Sediment Urine Bacteria Hyaline Casts Urine Mucus COVID-19 (MACK) COVID-19 Clin Com Airway Mallampati Class: III TM Dist: >3cm Neck ROM: Full Denture: Upper and Lower Assessment and Plan Assessment Anesthesia Assessment: Anesthesia Plan Discussed, Smoking Cess. Discussed and Chart Reviewed Final Anesthetic Review Family History of Problems with Anesthesia: No History of Problems with Anesthesia: No NPO: Yes ASA Class: III and Emergency Final Preanesthetic Review: No Changes in Pt Med Stat, Meds/Allgs Chart Reviewed, Consent Obtained/Reviewed and Anes Risks/Benef Reviewed Patient Risk: Intermediate Procedure Risk: Intermediate Anesthetic Plan Anesthetic Plan: GA Disposition: Standard PACU
--- NOTE | 2021-04-18 09:43 | MHC.CM.PN ---
PATIENT IS OFF UNIT CASE MANAGEMENT TO REATTEMPT ASSESSMENT WHEN HE IS BACK FROM [place] CONTACT CARD FOR THIS [employer] LEFT BEDSIDE AND CASE MANAGEMENT NAME ON WHITE BOARD. HCP IS ON FILE AND VERIFIED.
[2021-04-18] MEDS: Lactated Ringers 1,000 ML 100 ML IVCONT ×2 (10:05→14:13)
--- NOTE | 2021-04-18 10:06 | PC.NURSE ---
[facility] [employer] Jono Dumont to observe patients Laparoscopic Cholecystectomy with Dr. Jack. Anuradha per patient, Dr. Jack, and Director Trisha Simons.
--- NOTE | 2021-04-18 11:06 | P.PNIM_ITS ---
Subjective Subjective Date of Service: 04/18/21 Interval History: the patient was seen and evaluated this morning Laying in bed, feels mild improvement and decrease the pain Liver enzymes went up overnight Denies any fever, chills or shortness of breath No reported other overnight events. Review of Systems No fever, chills or weakness No chest pain, palpitation No shortness of breath or coughing Right upper quadrant abdominal pain improved a little No urinary symptoms No any rash or wounds Physical Exam Vital Signs: Vital Signs: Last Vital Signs Temp 98.3 F 04/18/21 09:33 Pulse 77 04/18/21 09:33 Resp 16 04/18/21 09:33 BP 125/80 04/18/21 09:33 Pulse Ox 98 04/18/21 09:36 BMI result Body Mass Index 35.7 Const: Other: Constitutional : Alert, oriented, not in distress Neck : Normal inspection, Supple Cardiovascular : RRR, S1 S2, no lower extremity edema Respiratory : Good bilateral air entry, no crackles, wheezes or rhonchi Gastrointestinal: soft, lax, Normal bowel sounds, mild right upper quadrant tenderness Skin : Warm, Dry Neurological : Alert & oriented x3, No focal deficit Objective Data Active Medications Escitalopram Oxalate (Escitalopram Oxalate 10 Mg Tablet) 10 mg PO DAILY [facility] Last Admin: 04/18/21 08:18 Dose: Not Given Documented by: JILL Non-Admin Reason: Off Unit: Surgery Fentanyl (Fentanyl Citrate/Pf 100 Mcg/2 Ml Vial) 25 mcg IVPUSH Q5M PRN; Protocol PRN Reason: Pain, Moderate (Pain Scale 4-6 Folic Acid (Folic Acid 1 Mg Tablet) 1 mg PO DAILY [facility] Last Admin: 04/18/21 08:18 Dose: Not Given Documented by: JILL Non-Admin Reason: Off Unit: Surgery Furosemide (Furosemide 40 Mg Tablet) 80 mg PO DAILY [facility]; Protocol Last Admin: 04/18/21 08:19 Dose: Not Given Documented by: JILL Non-Admin Reason: Off Unit: Surgery Gabapentin (Gabapentin 400 Mg Capsule) 2,400 mg PO DAILY [facility] Last Admin: 04/18/21 08:19 Dose: Not Given Documented by: JILL Non-Admin Reason: Off Unit: Surgery Hydromorphone HCl (Hydromorphone Hcl 1 Mg/Ml Syringe) 0.5 mg IVPUSH Q3H PRN; Protocol PRN Reason: Pain, Severe (Pain Scale 7-10) Last Admin: 04/18/21 08:15 Dose: 0.5 mg Documented by: JILL Sodium Chloride (Ns) 1,000 mls @ 80 mls/hr IVCONT .[id number] [facility] Last Infusion: 04/18/21 10:47 Dose: 0 mls/hr Documented by: JILL Piperacillin Sod/Tazobactam (Sod 3.375 gm/ Sodium Chloride) 50 mls @ 100 mls/hr IV Q6H [facility] Last Infusion: 04/18/21 06:29 Dose: 0 mls/hr Documented by: MADELEINE Lactated Ringer's (Lr) 1,000 mls @ 100 mls/hr IVCONT .Q10H [facility] Last Admin: 04/18/21 10:05 Dose: 100 mls/hr Documented by: CASSIDY Latanoprost (Latanoprost 0.005 % Ophth Shirley 2.5 Ml Drops) 1 drop EYE-BOTH DAILY [facility] Last Admin: 04/18/21 08:19 Dose: Not Given Documented by: JILL Non-Admin Reason: Off Unit: Surgery Metoprolol Succinate (Metoprolol Succinate Er 50 Mg Tab.Er.24h) 50 mg PO DAILY [facility]; Protocol Last Admin: 04/18/21 08:14 Dose: 50 mg Documented by: JILL Omeprazole (Omeprazole 40 Mg Capsule.Dr) 40 mg PO DAILY@0630 [facility] Last Admin: 04/18/21 05:18 Dose: 40 mg Documented by: MADELEINE Ondansetron HCl (Ondansetron Hcl 4 Mg/2 Ml Vial) 4 mg IVPUSH Q8H PRN PRN Reason: Nausea and Vomiting Ondansetron HCl (Ondansetron Hcl 4 Mg/2 Ml Vial) 4 mg IVPUSH ONCE PRN PRN Reason: Nausea and Vomiting Oxycodone HCl (Oxycodone Hcl Immed Release 5 Mg Tablet) 5 mg PO ONCE PRN PRN Reason: Pain, Severe (Pain Scale 7-10) Sodium Chloride (0.9 % Sodium Chloride Flush 3 Ml Syringe) 3 ml IVFLUSH QSHIFT [facility] Last Admin: 04/18/21 08:15 Dose: 3 ml Documented by: JILL Tamsulosin HCl (Tamsulosin Hcl 0.4 Mg Capsule) 0.4 mg PO DAILY [facility] Last Admin: 04/18/21 08:19 Dose: Not Given Documented by: JILL Non-Admin Reason: Off Unit: Surgery Thiamine HCl (Thiamine Hcl 100 Mg Tablet) 100 mg PO DAILY [facility] Last Admin: 04/18/21 08:19 Dose: Not Given Documented by: JILL Non-Admin Reason: Off Unit: Surgery Topiramate (Topiramate 25 Mg Tablet) 50 mg PO BEDTIME KIKI Last Admin: 04/17/21 22:04 Dose: 50 mg Documented by: NICOLE Verapamil HCl (Verapamil Hcl Sr 100 Mg Cap24h.Pct) 200 mg PO BEDTIME KIKI; Protocol Last Admin: 04/17/21 22:04 Dose: 200 mg Documented by: NICOLE Labs CBC & Chem 7: 04/18/21 05:25 04/18/21 05:25 Labs: Laboratory Results - last 24 hr 04/17/21 04/17/21 04/17/21 11:59 11:59 15:06 MCV 89.1 MCH 28.8 MCHC 32.3 RDW 14.0 Plt Count 206 MPV 9.8 Immature Gran % (Auto) 0.3 Neut % (Auto) 71.7 Lymph % (Auto) 16.9 L [place] % (Auto) 9.6 Eos % (Auto) 1.0 Baso % (Auto) 0.5 Lymph # (Auto) 1.9 [place] # (Auto) 1.1 Eos # (Auto) 0.1 Baso # (Auto) 0.1 Abs Immat Gran (auto) 0.04 H Absolute Neuts (auto) 8.3 Absolute Nucleated RBC 0.000 Nucleated RBC % (auto) 0.0 PT INR APTT Anion Gap 15 Estim Creat Clear Calc 114.5 Estimated GFR > 60 Random Glucose 109 Lactic Acid 0.9 Calcium 9.7 Total Bilirubin 0.7 Direct Bilirubin AST 15 ALT 15 Alkaline Phosphatase 78 Total Protein 7.2 Albumin 4.2 Lipase 14 Urine Color Urine Appearance Urine pH Ur Specific [place] Urine Protein Urine Glucose (UA) Urine Ketones Urine Blood Urine Nitrite Ur Leukocyte Esterase Urine RBC Urine WBC Ur Squamous Epith Cells Amorphous Sediment Urine Bacteria Hyaline Casts Urine Mucus COVID-19 (MACK) COVID-19 Clin Com Blood Type Antibody Screen 04/17/21 04/17/21 04/17/21 17:51 17:56 19:05 MCV MCH MCHC RDW Plt Count MPV Immature Gran % (Auto) Neut % (Auto) Lymph % (Auto) [place] % (Auto) Eos % (Auto) Baso % (Auto) Lymph # (Auto) [place] # (Auto) Eos # (Auto) Baso # (Auto) Abs Immat Gran (auto) Absolute Neuts (auto) Absolute Nucleated RBC Nucleated RBC % (auto) PT 13.4 H INR 1.2 H APTT 37.7 Anion Gap Estim Creat Clear Calc Estimated GFR Random Glucose Lactic Acid Calcium Total Bilirubin Direct Bilirubin AST ALT Alkaline Phosphatase Total Protein Albumin Lipase Urine Color DK YELLOW Urine Appearance HAZY Urine pH 5.5 Ur Specific [place] 1.020 Urine Protein 1+ H Urine Glucose (UA) NEG Urine Ketones NEG Urine Blood NEG Urine Nitrite NEG Ur Leukocyte Esterase NEG Urine RBC 0-2 Urine WBC 1-4 Ur Squamous Epith Cells 2+ Amorphous Sediment 2+ Urine Bacteria NONE Hyaline Casts 0-2 Urine Mucus 2+ COVID-19 (MACK) Negative COVID-19 Clin Com See Note Blood Type Antibody Screen 04/18/21 04/18/21 04/18/21 05:25 05:25 08:42 MCV 91.0 MCH 27.8 MCHC 30.6 L RDW 13.8 Plt Count 179 MPV 10.2 Immature Gran % (Auto) 0.4 Neut % (Auto) 68.5 Lymph % (Auto) 16.8 L [place] % (Auto) 11.9 H Eos % (Auto) 1.8 Baso % (Auto) 0.6 Lymph # (Auto) 1.3 [place] # (Auto) 0.9 Eos # (Auto) 0.1 Baso # (Auto) 0.1 Abs Immat Gran (auto) 0.03 Absolute Neuts (auto) 5.4 Absolute Nucleated RBC 0.000 Nucleated RBC % (auto) 0.0 PT INR APTT Anion Gap 14 Estim Creat Clear Calc 136.1 Estimated GFR > 60 Random Glucose 98 Lactic Acid Calcium 8.7 D Total Bilirubin 1.0 Direct Bilirubin 0.4 AST 170 H ALT 207 H Alkaline Phosphatase 191 H D Total Protein 5.8 L Albumin 3.4 L Lipase Urine Color Urine Appearance Urine pH Ur Specific [place] Urine Protein Urine Glucose (UA) Urine Ketones Urine Blood Urine Nitrite Ur Leukocyte Esterase Urine RBC Urine WBC Ur Squamous Epith Cells Amorphous Sediment Urine Bacteria Hyaline Casts Urine Mucus COVID-19 ([facility]ACK) COVID-19 Clin Com Blood Type O Positive Antibody Screen NEGATIVE Assessment and Plan (1) Diastolic CHF: Status: Acute (2) Acute acalculous cholecystitis: Status: Acute (3) Transaminitis: Status: Acute Plan a 56 years old male with PMH of obesity, P 80, HLD, CHF, BPH among others who presented to the hospital with abdominal pain and found to have cholecystitis picture. transaminitis 2/2 acalculous cholecystitis On IV antibiotics and IV fluids Surgery team following, plan for cholecystectomy today Monitor liver function History of diastolic CHF Not in exacerbation Lasix resumed by surgery team along with IV fluids Continue atorvastatin and metoprolol, verapamil BPH continue tamsulosin Resume the rest of his home medications Thank you for the consult, will continue to follow the patient with you Quality Stroke Does the patient have a stroke diagnosis?: No VTE Prior VTE?: No VTE Risk Level:: Medical - moderate - high VTE Device Contraindication: N/A - Device Ordered VTE Drug Contraindication: N/A - Med Ordered
--- NOTE | 2021-04-18 12:10 | P.OP_ITS ---
Operative Note Operative Note Date of Service: 04/18/21 Narrative: Preop diagnosis: Acute acalculous cholecystitis Postop diagnosis: Acute purulent cholecystitis with large amounts of pus in the gallbladder, adhesions in the supraumbilical area Procedure: Laparoscopic cholecystectomy, lysis of adhesion Surgeon: Obey Jack MD 1st executive administrative assistant: MEÑO Ohara The patient is a 56-year-old male admitted last night because of right upper quadrant pain and tenderness. His imaging studies showed a dilated gallbladder, marked wall thickening with some pericholecystic stranding consistent with acute cholecystitis. There were no stones seen. I had reviewed his CAT scan with the radiologist. He continued to have significant pain and tenderness so I told him that it would be best to proceed with cholecystectomy. He understood the technique of laparoscopic cholecystectomy. He was aware of the risks, benefits, and alternatives. He was brought to the operating room and placed in position under general anesthesia via endotracheal tube. A surgical time-out was done. The abdomen is prepped and draped in the usual sterile fashion A small supraumbilical incision was made in the skin using blade 15. He had a surgical scar in this area from what he described as a previous hernia . This incision was carried down through the full-thickness skin the fascia. The fascia was gently incised. With present proceeded to explore the area but there were a lot of bowel loops surrounding this. Furthermore, the mesh was visualized and it appeared that these bowel loops were adherent to the mesh. I initially attempted to insert the Ananth port to this but encounter significant resistance likely because of these adhesions. I therefore decided to used the epigastric area as my incision site for placement of the Ananth port and for insufflation. I made an incision on the epigastric area below the subcostal margin using blade 15. I carried this down through the full-thickness skin and subcutaneous fat to the fascia. The fascia was incised. I gently dissected through the fascia and the muscular layer until I entered the no new cavity. The Ananth port was placed through this and. We insufflated through this port to 15 mm hg. The camera was placed and we were able to achieve good visualization. Examination of the umbilical area showed current bowel loops consistent with her earlier findings. I proceeded to make short incision cephalad to these lesions and proceeded to insert a 5/5 mm port to this incision away from the area of adhesions. I moved the camera through this and we then proceeded to insert 5 mm port in the epigastric area below the subcostal margin along the anterior axillary line and the midclavicular line. Graspers were placed through these working ports. The patient was placed in head-up and [id number] position. With laparoscopic visualization, proceeded to then examined the right upper quadrant. The gallbladder was markedly distended, very the Gilda and acutely inflamed. We had to decompress this with an aspirating needle until were able to apply grasper the the fundus. we then proceeded to retract the gallbladder cephalad. There was note of some omentum adherent to the gallbladder wall anteriorly so with to carefully dissected bluntly with the [place] dissector until I was able to expose the entire anterior wall. I was able to apply a grasper near the pouch of the gallbladder and this was used to retract the gallbladder laterally. At this point therefore the gallbladder was being retracted in lateral cephalad fashion. There was note of a lot of indurated area all tissue surrounding the neck so we had to carefully dissect this with the [place] dissector. We had to proceed slowly this dissection in view of significant oozing from the acute inflammatory changes. this part of the procedure took an extended period of time because of the amount of indurated tissue with oozing. At some point, there was note of pus from within the gallbladder draining through the gallbladder wall at the graspers. The large amounts of this were seen to drain so this in fact pointed to a acute purulent cholecystitis. We then proceeded to continue to dissect the neck of the gallbladder gently until was able to visualize what appeared the cystic duct to. We carefully skeletonized this with the [place] dissector until was able to confirm its confluence with the neck of the gallbladder. The cystic artery was also seen. There were no other tubular structures. There was note of of indurated tissue in the hilum however With critical view of the hepatocystic triangle achieved, I proceeded to apply clips on the cystic duct with 2 clips being applied distally. The cystic duct was transected clips with Endo scissors. Clips are also applied on the cystic artery and this was transected between clips with Endo scissors I then proceeded to gently through the very indurated and inflamed a combination of blunt dissection the [place] as well as electrocautery. I then proceeded to use the L hook electrocautery to carefully dissect the markedly thickened indurated peritoneum of the gallbladder. This manner of dissection, I proceeded to carefully define a plane of dissection between the gallbladder wall and the liver bed, leaving behind a thick rind of indurated peritoneum I continued to separate the gallbladder wall away from the liver bed this plane of dissection. There was note of oozing along the way because of the acute inflammatory changes. Again the gallbladder wall from the liver bed along this plane took an extended period time in view of the significant and inflammatory changes. Eventually we were able to completely separate the gallbladder from the liver bed. This was retrieved through an endobag through the supraumbilical incision. We had to enlarge the incision because of the size of the gallbladder The I reinserted the ports and re-insufflated The subhepatic space was seen. There was note of some oozing from the liver bed so we had to apply Surgicel into the area. I then positioned a 7 DENISE drain on the subhepatic space and this was brought out through most port site. This was secured to the skin with nylon 3-0 sutures. I had to copiously irrigate the subhepatic space in view of the large amounts of pus that had drained from within the gallbladder itself We then observed for hemostasis. Once hemostasis was confirmed, we desufflated. I then proceeded to enlarge the second supraumbilical incision because of the presence of significant adherent small bowel loops on the very 1st umbilical incision. I carefully visualized underneath the fascia well enlarging the incision. I had to release a lot of adherent small bowel loops on this area going to examine the adherent small bowel loops. I was able to connect the two supraumbilical incisions to make this is 1 incision and this allowed me to examine the small bowel loops carefully. I had to do careful lysis of adhesions with the Metzenbaum scissors to release this matted loop of small bowel until was able to release this and examined this carefully. There was no evidence of any injury. I was able to therefore achieved exposure of the fascia for better closure. I therefore closed this fascia with a running Maxon 1 stitch. I closed the epigastric incision with the figure-eight Dexon 0 stitch . I irrigated all the incisions copiously. I closed all incisions with skin tahmina on the skin. All incisions were infiltrated with Marcaine 0.5% for postop analgesia. Dressings were applied. The proble vital signs.cedure was then completed The patient tolerated the procedure well. No complication noted. Initial fine counts of sponges and instruments were correct. Estimated blood loss about 200 cc . The patient was extubated without difficulty and transferred to the recovery room with stable vital signs.
--- NOTE | 2021-04-18 12:33 | P.BOP_ITS ---
Brief Operative Note Date of Service: 04/18/21 Pre-op diagnosis: acute cholecystitis Post-op diagnosis: same (suppurative; hydrops) Procedure: laparoscopic cholecystectomy, lysis of adhesions Surgeon: JERE JOHNSON MD Anesthesia: GETA Was an Healthcare Financial Analyst used for this Procedure?: Yes Healthcare Financial Analyst: Gissel Ohara Estimated blood loss (mL): 50 Pathology: other (gallbladder) Condition: stable Disposition: PACU
[2021-04-18] MEDS: HYDROmorphone HCl 0.5 MG/0.5 ML SYRINGE IVPUSH ×4 (12:43→13:22)
--- NOTE | 2021-04-18 17:15 | PM.EVENT ---
Event Note Date of Service: 04/18/21 Event Note: seen postop c/o incisional pain pain issue better than preop stable VS looks well DENISE dark blood pain mgt doing well postop continue IV abx - purulent cholecystitis
[2021-04-18] MEDS: 0.9 % Sodium Chloride 1,000 ML 80 ML IVCONT ×2 (18:09→22:31)
[2021-04-18] MEDS: Topiramate 25 MG TABLET 50 MG PO (20:40)
[2021-04-18] MEDS: oxyCODONE HCl Immed Release 5 MG TABLET PO (22:28)
[2021-04-19] MEDS: HYDROmorphone HCl 1 MG/ML SYRINGE 0.5 MG IVPUSH ×7 (00:17→23:32)
[2021-04-19] MEDS: oxyCODONE HCl Immed Release 5 MG TABLET 10 MG PO ×5 (03:00→21:58)
[2021-04-19 04:00] VITALS: BP 113/73; PULSE 59; RESP 16; TEMP 36.3; O2SAT 99
[2021-04-19] MEDS: Omeprazole 40 MG CAPSULE.DR PO (05:05)
[2021-04-19] MEDS: Piperacillin Sodium/Tazobactam 3.375 GM in 0.9 % Sodium Chloride 50 ML IV ×4 (05:05→23:33)
[2021-04-19 06:12] LABS: Anion Gap 15 (12-20); Blood Urea Nitrogen 16 mg/dL (9-16); Calcium 8.9 mg/dL (8.4-10.2); Carbon Dioxide 25 mmol/L (22-29); Chloride 105 mmol/L (96-108); Creatinine Clr Calc Pharmacy 140.8; Estimated Glomerular Filt Rate > 60; Glucose Random 123 mg/dL (60-115); Sodium 141 mmol/L (135-145)
[2021-04-19 06:15] LABS: Alanine Aminotransferase 174 U/L (0-40); Albumin Level 3.6 g/dL (3.5-5.0); Alkaline Phosphatase 186 U/L (39-117); Aspartate Amino Transferase 68 U/L (5-37); Bilirubin Direct 0.3 mg/dL (0.0-0.5); Bilirubin Total 0.5 mg/dL (0.0-1.0); Total Protein 6.1 g/dL (6.5-8.0)
[2021-04-19 07:08] VITALS: BP 114/71; PULSE 60; RESP 18; TEMP 36.6; O2SAT 97
[2021-04-19] MEDS: Furosemide 40 MG TABLET 80 MG PO (07:23)
[2021-04-19] MEDS: Tamsulosin HCL 0.4 MG CAPSULE PO (07:25)
[2021-04-19] MEDS: Thiamine HCL 100 MG TABLET PO (07:27)
[2021-04-19] MEDS: Metoprolol Succinate ER 50 MG TAB.ER.24H PO (07:27)
[2021-04-19] MEDS: Escitalopram Oxalate 10 MG TABLET PO (07:27)
[2021-04-19] MEDS: Folic Acid 1 MG TABLET PO (07:29)
[2021-04-19] MEDS: Gabapentin 400 MG CAPSULE 2400 MG PO (07:34)
[2021-04-19] MEDS: 0.9 % Sodium Chloride Flush 3 ML SYRINGE IVFLUSH ×3 (07:45→19:57)
--- NOTE | 2021-04-19 09:07 | HO.POSTANES ---
Post Anesthesia Evaluation Post Anesthesia Evaluation Vital Signs: Vital Signs Temp Pulse Resp BP Pulse Ox 04/19/21 07:08 97.8 F 60 18 114/71 97 04/19/21 04:00 97.3 F 59 16 113/73 99 04/18/21 23:56 97.6 F 59 16 129/86 96 Anesthesia: General Endotracheal-GETA Mental Status: Awake Pain Control: Satisfactory Nausea/Vomiting: None Hydration: Adequate Anesthesia-Related Issues: No Anes. Related Issues
--- NOTE | 2021-04-19 09:33 | PM.PNGS ---
Subjective Subjective Date of Service: 04/19/21 Interval history: says he feels okay today - just sore tolerating diet no events reported overnight Physical Exam Vital Signs: Vital Signs: Last Vital Signs Temp 97.8 F 04/19/21 07:08 Pulse 60 04/19/21 07:08 Resp 18 04/19/21 07:08 BP 114/71 04/19/21 07:08 Pulse Ox 97 04/19/21 07:08 BMI result Body Mass Index 35.7 Const: Other: seen ambulating General: comfortable and no acute distress Resp: Effort & Inspection: normal respiratory effort GI: Other: soft, dressings dry, DENISE drain with scanty dark old blood Objective Data Active Medications Acetaminophen (Acetaminophen 325 Mg Tablet) 650 mg PO Q6H PRN PRN Reason: fever, pain Escitalopram Oxalate (Escitalopram Oxalate 10 Mg Tablet) 10 mg PO DAILY [facility] Last Admin: 04/19/21 07:27 Dose: 10 mg Documented by: DANISH Folic Acid (Folic Acid 1 Mg Tablet) 1 mg PO DAILY [facility] Last Admin: 04/19/21 07:29 Dose: 1 mg Documented by: DANISH Furosemide (Furosemide 40 Mg Tablet) 80 mg PO DAILY [facility]; Protocol Last Admin: 04/19/21 07:23 Dose: 80 mg Documented by: DANISH Gabapentin (Gabapentin 400 Mg Capsule) 2,400 mg PO DAILY [facility] Last Admin: 04/19/21 07:34 Dose: 2,400 mg Documented by: DANISH Hydromorphone HCl (Hydromorphone Hcl 1 Mg/Ml Syringe) 0.5 mg IVPUSH Q3H PRN; Protocol PRN Reason: Pain, Severe (Pain Scale 7-10) Last Admin: 04/19/21 05:04 Dose: 0.5 mg Documented by: FLY Piperacillin Sod/Tazobactam (Sod 3.375 gm/ Sodium Chloride) 50 mls @ 100 mls/hr IV Q6H [facility] Last Infusion: 04/19/21 05:36 Dose: 0 mls/hr Documented by: FLY Latanoprost (Latanoprost 0.005 % Ophth Shirley 2.5 Ml Drops) 1 drop EYE-BOTH DAILY [facility] Last Admin: 04/18/21 08:19 Dose: Not Given Documented by: JILL Non-Admin Reason: Off Unit: Surgery Metoprolol Succinate (Metoprolol Succinate Er 50 Mg Tab.Er.24h) 50 mg PO DAILY [facility]; Protocol Last Admin: 04/19/21 07:27 Dose: 50 mg Documented by: DANISH Omeprazole (Omeprazole 40 Mg Capsule.Dr) 40 mg PO DAILY@0630 [facility] Last Admin: 04/19/21 05:05 Dose: 40 mg Documented by: FLY Ondansetron HCl (Ondansetron Hcl 4 Mg/2 Ml Vial) 4 mg IVPUSH Q8H PRN PRN Reason: Nausea and Vomiting Oxycodone HCl (Oxycodone Hcl Immed Release 5 Mg Tablet) 5 mg PO Q4H PRN PRN Reason: Pain, Moderate (Pain Scale 4-6 Last Admin: 04/18/21 22:28 Dose: 5 mg Documented by: FLY Oxycodone HCl (Oxycodone Hcl Immed Release 5 Mg Tablet) 10 mg PO Q4H PRN PRN Reason: Pain, Severe (Pain Scale 7-10) Last Admin: 04/19/21 07:28 Dose: 10 mg Documented by: DANISH Sodium Chloride (0.9 % Sodium Chloride Flush 3 Ml Syringe) 3 ml IVFLUSH QSHIFT [facility] Last Admin: 04/19/21 07:45 Dose: 3 ml Documented by: DANISH Tamsulosin HCl (Tamsulosin Hcl 0.4 Mg Capsule) 0.4 mg PO DAILY [facility] Last Admin: 04/19/21 07:25 Dose: 0.4 mg Documented by: DANISH Thiamine HCl (Thiamine Hcl 100 Mg Tablet) 100 mg PO DAILY [facility] Last Admin: 04/19/21 07:27 Dose: 100 mg Documented by: DANISH Topiramate (Topiramate 25 Mg Tablet) 50 mg PO BEDTIME [facility] Last Admin: 04/18/21 20:40 Dose: 50 mg Documented by: FLY Verapamil HCl (Verapamil Hcl Sr 100 Mg Cap24h.Pct) 200 mg PO BEDTIME [facility]; Protocol Last Admin: 04/18/21 20:40 Dose: 200 mg Documented by: FLY Labs CBC & Chem 7: 04/18/21 05:25 04/19/21 05:40 Labs: Laboratory Results - last 24 hr 04/18/21 04/19/21 04/19/21 08:42 05:40 05:40 Anion Gap 15 Estim Creat Clear Calc 140.8 Estimated GFR > 60 Random Glucose 123 H Calcium 8.9 Total Bilirubin 0.5 Direct Bilirubin 0.3 AST 68 H ALT 174 H Alkaline Phosphatase 186 H Total Protein 6.1 L Albumin 3.6 Blood Type O Positive Antibody Screen NEGATIVE Microbiology Microbiology Results: Microbiology 04/17/21 16:24 Blood Culture - Preliminary Blood - Venous No growth after 24 hours. 04/17/21 15:06 Blood Culture - Preliminary Blood - Venous No growth after 24 hours. Procedures Date of Service Date of Service: 04/19/21 Progress Note: A&P Assessment and plan (1) Acute acalculous cholecystitis: Status: Acute Assessment and Plan: status post lap choly doing well DENISE drain with scanty output labs ok DC IV continue Zosyn patient says he is not ready to be discharged today plan to DC home tomorrow p.o. antibiotics in view of cholecystitis discuss with field nurse case manager regarding home care as patient's request Fall Risk Details Current Medications: Current Medications Acetaminophen (Acetaminophen 325 Mg Tablet) 650 mg PO Q6H PRN PRN Reason: fever, pain Escitalopram Oxalate (Escitalopram Oxalate 10 Mg Tablet) 10 mg PO DAILY [facility] Last Admin: 04/19/21 07:27 Dose: 10 mg Documented by: Folic Acid (Folic Acid 1 Mg Tablet) 1 mg PO DAILY [facility] Last Admin: 04/19/21 07:29 Dose: 1 mg Documented by: Furosemide (Furosemide 40 Mg Tablet) 80 mg PO DAILY [facility]; Protocol Last Admin: 04/19/21 07:23 Dose: 80 mg Documented by: Gabapentin (Gabapentin 400 Mg Capsule) 2,400 mg PO DAILY [facility] Last Admin: 04/19/21 07:34 Dose: 2,400 mg Documented by: Hydromorphone HCl (Hydromorphone Hcl 1 Mg/Ml Syringe) 0.5 mg IVPUSH Q3H PRN; Protocol PRN Reason: Pain, Severe (Pain Scale 7-10) Last Admin: 04/19/21 05:04 Dose: 0.5 mg Documented by: Piperacillin Sod/Tazobactam (Sod 3.375 gm/ Sodium Chloride) 50 mls @ 100 mls/hr IV Q6H [facility] Last Infusion: 04/19/21 05:36 Dose: Infused Documented by: Latanoprost (Latanoprost 0.005 % Ophth Shirley 2.5 Ml Drops) 1 drop EYE-BOTH DAILY [facility] Last Admin: 04/18/21 08:19 Dose: Not Given Documented by: Metoprolol Succinate (Metoprolol Succinate Er 50 Mg Tab.Er.24h) 50 mg PO DAILY [facility]; Protocol Last Admin: 04/19/21 07:27 Dose: 50 mg Documented by: Omeprazole (Omeprazole 40 Mg Capsule.Dr) 40 mg PO DAILY@0630 [facility] Last Admin: 04/19/21 05:05 Dose: 40 mg Documented by: Ondansetron HCl (Ondansetron Hcl 4 Mg/2 Ml Vial) 4 mg IVPUSH Q8H PRN PRN Reason: Nausea and Vomiting Oxycodone HCl (Oxycodone Hcl Immed Release 5 Mg Tablet) 5 mg PO Q4H PRN PRN Reason: Pain, Moderate (Pain Scale 4-6 Last Admin: 04/18/21 22:28 Dose: 5 mg Documented by: Oxycodone HCl (Oxycodone Hcl Immed Release 5 Mg Tablet) 10 mg PO Q4H PRN PRN Reason: Pain, Severe (Pain Scale 7-10) Last Admin: 04/19/21 07:28 Dose: 10 mg Documented by: Sodium Chloride (0.9 % Sodium Chloride Flush 3 Ml Syringe) 3 ml IVFLUSH QSHIFT [facility] Last Admin: 04/19/21 07:45 Dose: 3 ml Documented by: Tamsulosin HCl (Tamsulosin Hcl 0.4 Mg Capsule) 0.4 mg PO DAILY [facility] Last Admin: 04/19/21 07:25 Dose: 0.4 mg Documented by: Thiamine HCl (Thiamine Hcl 100 Mg Tablet) 100 mg PO DAILY [facility] Last Admin: 04/19/21 07:27 Dose: 100 mg Documented by: Topiramate (Topiramate 25 Mg Tablet) 50 mg PO BEDTIME [facility] Last Admin: 04/18/21 20:40 Dose: 50 mg Documented by: Verapamil HCl (Verapamil Hcl Sr 100 Mg Cap24h.Pct) 200 mg PO BEDTIME [facility]; Protocol Last Admin: 04/18/21 20:40 Dose: 200 mg Documented by: Time Spent With Patient Time: Total time spent is greater than 50% in coordination of care (as documented) at patient's floor/unit and/or counseling patient: Time with patient: 15 - 24 minutes Quality Stroke Does the patient have a stroke diagnosis?: No VTE Prior VTE?: No VTE Risk Level:: Medical - moderate - high VTE Device Contraindication: N/A - Device Ordered VTE Drug Contraindication: N/A - Med Ordered
--- NOTE | 2021-04-19 10:19 | P.PNIM_ITS ---
Subjective Subjective Date of Service: 04/19/21 Interval History: the patient was seen and evaluated this morning Laying in bed, complaining of pain at the surgical site Drain having bloody material in it Liver enzymes trending down Denies any fever, chills or shortness of breath No reported other overnight events. Review of Systems No fever, chills or weakness No chest pain, palpitation No shortness of breath or coughing Surgical site pain, drainage from the drain No urinary symptoms No any rash or wounds Physical Exam Vital Signs: Vital Signs: Last Vital Signs Temp 97.8 F 04/19/21 07:08 Pulse 60 04/19/21 07:08 Resp 18 04/19/21 07:08 BP 114/71 04/19/21 07:08 Pulse Ox 97 04/19/21 07:08 BMI result Body Mass Index 35.7 Const: Other: Constitutional : Alert, oriented, not in distress Neck : Normal inspection, Supple Cardiovascular : RRR, S1 S2, no lower extremity edema Respiratory : Good bilateral air entry, no crackles, wheezes or rhonchi Gastrointestinal: soft, lax, Normal bowel sounds, mild right upper quadrant tenderness, DENISE drain in place with bloody material in it Skin : Warm, Dry Neurological : Alert & oriented x3, No focal deficit Objective Data Active Medications Acetaminophen (Acetaminophen 325 Mg Tablet) 650 mg PO Q6H PRN PRN Reason: fever, pain Escitalopram Oxalate (Escitalopram Oxalate 10 Mg Tablet) 10 mg PO DAILY [facility] Last Admin: 04/19/21 07:27 Dose: 10 mg Documented by: DANISH Folic Acid (Folic Acid 1 Mg Tablet) 1 mg PO DAILY [facility] Last Admin: 04/19/21 07:29 Dose: 1 mg Documented by: DANISH Furosemide (Furosemide 40 Mg Tablet) 80 mg PO DAILY [facility]; Protocol Last Admin: 04/19/21 07:23 Dose: 80 mg Documented by: DANISH Gabapentin (Gabapentin 400 Mg Capsule) 2,400 mg PO DAILY [facility] Last Admin: 04/19/21 07:34 Dose: 2,400 mg Documented by: DANISH Hydromorphone HCl (Hydromorphone Hcl 1 Mg/Ml Syringe) 0.5 mg IVPUSH Q3H PRN; Pr otocol PRN Reason: Pain, Severe (Pain Scale 7-10) Last Admin: 04/19/21 05:04 Dose: 0.5 mg Documented by: FLY Piperacillin Sod/Tazobactam (Sod 3.375 gm/ Sodium Chloride) 50 mls @ 100 mls/hr IV Q6H [facility] Last Infusion: 04/19/21 05:36 Dose: 0 mls/hr Documented by: FLY Latanoprost (Latanoprost 0.005 % Ophth Shirley 2.5 Ml Drops) 1 drop EYE-BOTH DAILY [facility] Last Admin: 04/18/21 08:19 Dose: Not Given Documented by: JILL Non-Admin Reason: Off Unit: Surgery Metoprolol Succinate (Metoprolol Succinate Er 50 Mg Tab.Er.24h) 50 mg PO DAILY [facility]; Protocol Last Admin: 04/19/21 07:27 Dose: 50 mg Documented by: DANISH Omeprazole (Omeprazole 40 Mg Capsule.Dr) 40 mg PO DAILY@0630 [facility] Last Admin: 04/19/21 05:05 Dose: 40 mg Documented by: FLY Ondansetron HCl (Ondansetron Hcl 4 Mg/2 Ml Vial) 4 mg IVPUSH Q8H PRN PRN Reason: Nausea and Vomiting Oxycodone HCl (Oxycodone Hcl Immed Release 5 Mg Tablet) 5 mg PO Q4H PRN PRN Reason: Pain, Moderate (Pain Scale 4-6 Last Admin: 04/18/21 22:28 Dose: 5 mg Documented by: FLY Oxycodone HCl (Oxycodone Hcl Immed Release 5 Mg Tablet) 10 mg PO Q4H PRN PRN Reason: Pain, Severe (Pain Scale 7-10) Last Admin: 04/19/21 07:28 Dose: 10 mg Documented by: DANISH Sodium Chloride (0.9 % Sodium Chloride Flush 3 Ml Syringe) 3 ml IVFLUSH QSHIFT [facility] Last Admin: 04/19/21 07:45 Dose: 3 ml Documented by: DANISH Tamsulosin HCl (Tamsulosin Hcl 0.4 Mg Capsule) 0.4 mg PO DAILY [facility] Last Admin: 04/19/21 07:25 Dose: 0.4 mg Documented by: DANISH Thiamine HCl (Thiamine Hcl 100 Mg Tablet) 100 mg PO DAILY [facility] Last Admin: 04/19/21 07:27 Dose: 100 mg Documented by: DANISH Topiramate (Topiramate 25 Mg Tablet) 50 mg PO BEDTIME [facility] Last Admin: 04/18/21 20:40 Dose: 50 mg Documented by: FLY Verapamil HCl (Verapamil Hcl Sr 100 Mg Cap24h.Pct) 200 mg PO BEDTIME [facility]; Protocol Last Admin: 04/18/21 20:40 Dose: 200 mg Documented by: FLY Labs CBC & Chem 7: 04/18/21 05:25 04/19/21 05:40 Labs: Laboratory Results - last 24 hr 04/19/21 04/19/21 05:40 05:40 Anion Gap 15 Estim Creat Clear Calc 140.8 Estimated GFR > 60 Random Glucose 123 H Calcium 8.9 Total Bilirubin 0.5 Direct Bilirubin 0.3 AST 68 H ALT 174 H Alkaline Phosphatase 186 H Total Protein 6.1 L Albumin 3.6 Microbiology Microbiology Results: Microbiology 04/17/21 16:24 Blood Culture - Preliminary Blood - Venous No growth after 24 hours. 04/17/21 15:06 Blood Culture - Preliminary Blood - Venous No growth after 24 hours. Assessment and Plan (1) Transaminitis: Status: Acute (2) Acute acalculous cholecystitis: Status: Acute Plan a 56 years old male with PMH of obesity, P 80, HLD, CHF, BPH among others who presented to the hospital with abdominal pain and found to have cholecystitis picture. transaminitis 2/2 acalculous cholecystitis Pod [address] Transaminitis improving Discontinue IVF Continue IV antibiotics Surgery team following Monitor liver function History of diastolic CHF Not in exacerbation Continue Lasix Continue atorvastatin and metoprolol, verapamil BPH continue tamsulosin Resume the rest of his home medications Thank you for the consult, will continue to follow the patient with you Quality Stroke Does the patient have a stroke diagnosis?: No VTE Prior VTE?: No VTE Risk Level:: Medical - moderate - high VTE Device Contraindication: N/A - Device Ordered VTE Drug Contraindication: N/A - Med Ordered
[2021-04-19] MEDS: Latanoprost 0.005 % Ophth Sol 2.5 ML DROPS 1 DROP EYE-BOTH (10:23)
[2021-04-19 11:02] VITALS: BP 116/68; PULSE 70; RESP 18; TEMP 36.6; O2SAT 96
--- NOTE | 2021-04-19 12:07 | PM.DS ---
DS: Providers Provider Date of Service: 04/21/21 <Gissel Ohara PA-C - Last Filed: 04/26/21 10:34> Date of admission: 04/17/21 17:06 <Gissel Ohara PA-C - Last Filed: 04/26/21 10:34> Primary care physician: Holly Cardozo MD <Gissel Ohara PA-C - Last Filed: 04/26/21 10:34> Attending physician on admission: Obey Jack <Gissel Ohara PA-C - Last Filed: 04/26/21 10:34> Consults: 04/17/21 17:13 Consult to Hospitalist Routine Consulting Provider: Hospitalist Reason For Exam: History of CHF, hypertension, alcohol liver diseas <ALESSIA Murcia Last Filed: 04/26/21 10:34> DS: Diagnosis Discharge Diagnosis (1) Transaminitis: Status: Acute <ALESSIA Murcia Last Filed: 04/26/21 10:34> (2) Acute acalculous cholecystitis: Status: Acute <ALESSIA Murcia Last Filed: 04/26/21 10:34> DS: Summary Hospital Course Hospital Course: BRIEF HPI: Zuhair Anthony is a 56 year old male with history of alcohol abuse, CHF, hypertension, had admitted today by the ER because of epigastric and right upper quadrant pain. He says that this started about 2 days ago. This seems to have worsened today so he decided to come to the ER. He denies any fever or chills. He denies any nausea or vomiting. He does have a significant history of alcohol abuse. He says that he has been sober for several months now however. ultrasound and his CAT scan shows some thickening of the gallbladder wall without any evidence of any gallstones. HOSPITAL COURSE: He was admitted to the surgical service for further treatment of the acute acalculous cholecystitis. He will be admitted for antibiotics, IV fluids and PRN analgesics for pain. The hospitalist service was consulted in view of his history of CHF. He was reassessed the following day and had persistent pain and wanted to proceed with cholecystectomy. He did have a bump in AST and ALT which was likely due to inflammatory process in the gallbladder as the bilirubin was normal. He was added onto the OR schedule for that day. On 04/18/21, a laparoscopic cholecystectomy with JILLIAN was performed by Dr. Jack without complication. The gallbladder was very inflammed with hydrops and significant amount of purulence. The patient tolerated the procedure well, completed routine recovery in PACU and was admitted for observation. He had an uncomplicated recovery course. On POD#1, he was very sore. He was tolerating a solid diet but did not have much of an appetite. He was OOB and ambulating. He was kept one more day for pain control. His LFTs improved. He felt improved with better pain control over the next couple post operative days. He continued to tolerate a solid diet and was OOB without difficulty. His abdomen was benign with appropriate post op tenderness and dressings c/d/i. His DENISE drain output became serosanguineous output and was kept in place upon discharge in light of the significant purulent drainage from the GB during the procedure. This decreased. It was removed prior to discharge. He felt ready for discharge. He was discharged to home on 04/21/21 in stable condition on a PO course of Augmentin. He is to follow up in the office in [address] Jack. <ALESSIA Murcia Last Filed: 04/26/21 10:34> Status at Discharge Functional status at discharge: independent ambulation <ALESSIA Murcia Last Filed: 04/26/21 10:34> Overall status at discharge: patient is progressing back to baseline <ALESSIA Murcia Last Filed: 04/26/21 10:34> Time Spent with Patient Time attestation: Total time spent providing and/or coordinating discharge services: <ALESSIA Murcia Last Filed: 04/26/21 10:34> Discharge coordination time: Greater than 30 minutes <ALESSIA Murcia Last Filed: 04/26/21 10:34> Quality: Stroke Does the patient have a stroke diagnosis?: No <ALESSIA Murcia Last Filed: 04/26/21 10:34> Physical Exam Vital Signs: Vital Signs: Last Vital Signs Temp 98 F 04/19/21 11:02 Pulse 70 04/19/21 11:02 Resp 18 04/19/21 11:02 BP 116/68 04/19/21 11:02 Pulse Ox 96 04/19/21 11:02 BMI result Body Mass Index 35.7 <Gissel Ohara PA-C - Last Filed: 04/26/21 10:34> Const: General: comfortable, no acute distress and alert <Gissel Ohara PA-C - Last Filed: 04/26/21 10:34> Orientation/consciousness: patient oriented x3 <Gissel Ohara PA-C - Last Filed: 04/26/21 10:34> GI: Other: DENISE with serosanguineous output, removed <Gissel Ohara PA-C - Last Filed: 04/26/21 10:34> Inspection: No distended and Yes incision (dressing c/d/i) <Gissel Ohara PA-C - Last Filed: 04/26/21 10:34> Palpation (GI): Soft to palpation <Gissel Ohara PA-C - Last Filed: 04/26/21 10:34> Skin: General skin exam: no rashes or lesions noted <Gissel Ohara PA-C - Last Filed: 04/26/21 10:34> Neuro: General: patient oriented x3 <Gissel Ohara PA-C - Last Filed: 04/26/21 10:34> DS: Data Data Completed and Pending Pending studies at discharge: PATHOLOGY: Gallbladder, cholecystectomy: Gangrenous and suppurative cholecystitis. <Gissel Ohara PA-C Last Filed: 04/26/21 10:34> Labs on day of discharge: Laboratory Results - last 24 hr 04/19/21 04/19/21 05:40 05:40 Sodium 141 Potassium 4.0 Chloride 105 Carbon Dioxide 25 Anion Gap 15 BUN 16 Creatinine 0.87 Estim Creat Clear Calc 140.8 Estimated GFR > 60 Random Glucose 123 H Calcium 8.9 Total Bilirubin 0.5 Direct Bilirubin 0.3 AST 68 H ALT 174 H Alkaline Phosphatase 186 H Total Protein 6.1 L Albumin 3.6 Preliminary micro results at discharge 04/17/21 16:24 Blood Culture - Preliminary Blood - Venous No growth after 24 hours. 04/17/21 15:06 Blood Culture - Preliminary Blood - Venous No growth after 24 hours. <Gissel Ohara PA-C - Last Filed: 04/26/21 10:34> Discharge Plan Discharge Patient Disposition: Home Health Service <Gissel Ohara PA-C - Last Filed: 04/26/21 10:34> Discharge Diagnosis: acute cholecystitis <Gissel Ohara PA-C - Last Filed: 04/26/21 10:34> Referrals: Obey Jack MD [Physician] - 1 Week Physician,Lashonda J [Physician] - 1 Week <Gissel Ohara PA-C - Last Filed: 04/26/21 10:34> Discharge Medications: New amoxicillin-pot clavulanate [Augmentin] 500-125 mg tablet 1 tab PO Q12H Qty: 14 0RF Continued latanoprost 0.005 % drops 1 drp ophthalmic (eye) DAILY 0RF cyanocobalamin (vitamin B-12) 100 mcg tablet 0.5 tab PO QAM 0RF metoprolol succinate 50 mg tablet extended release 24 hr 1 tab PO QAM 0RF thiamine HCl (vitamin B1) 100 mg tablet 1 tab PO QAM 0RF capsaicin [Arthritis Pain Relief(capsaic)] 0.075 % cream 1 appl topical TID 0RF acetaminophen 500 mg tablet 2 tab PO Q8H PRN (Reason: Pain) 0RF tamsulosin 0.4 mg capsule 1 cap PO QAM 0RF gabapentin 800 mg tablet 3 tab PO QAM 0RF pantoprazole 40 mg tablet,delayed release (DR/EC) 1 tab PO QAM 0RF verapamil 200 mg capsule, [address] 1 cap PO BEDTIME 0RF oxycodone 5 mg tablet 1 tab PO DAILY PRN (Reason: pain) 0RF escitalopram oxalate 10 mg tablet 1 tab PO QAM 0RF topiramate 50 mg tablet 1 tab PO BEDTIME 0RF varenicline 1 mg tablet 1 tab PO BID 0RF testosterone [AndroGel] 20.25 mg/1.25 gram (1.62 %) gel in metered-dose pump 1 pump topical QAM 0RF multivitamin Tablet 1 tab PO DAILY 0RF furosemide [Lasix] 80 mg tablet 80 mg PO DAILY 0RF folic acid 1 mg tablet 1 mg PO DAILY 0RF atorvastatin 20 mg tablet 20 mg PO BEDTIME 0RF No Action oxycodone 5 mg capsule 5 mg PO Q4H PRN (Reason: pain (scale score 7-10)) Qty: 20 0RF <ALESSIA Murcia Last Filed: 04/26/21 10:34> Discharge Orders: Discharge Order (Routine); Ordered 04/21/21 Ordered By: Yamilka Caruso <ALESSIA Murcia Last Filed: 04/26/21 10:34> Diet: advance to usual diet and low fat, low cholesterol <ALESSIA Murcia Last Filed: 04/26/21 10:34> Activity on Discharge: No heavy lifting <ALESSIA Murcia Last Filed: 04/26/21 10:34> Stand Alone Forms: Patient Portal Discharge page <ALESSIA Murcia Last Filed: 04/26/21 10:34> Activity Restrictions/Additional Instructions: If the incision area is tender, you may apply an ice pack for short intervals (No more than 20 minutes on, followed by at least 20 minutes off). Do not apply heat. Do not use creams, lotions, or topical antibiotics unless instructed to do so by your surgeon. These can cause infection or allergic reaction. Ok to shower. You have tahmina closing your incision and these will be removed approximately 10-14 days after surgery. DENISE DRAIN CARE- EMPTY DAILY AND RECORD AMOUNT. NO HEAVY LIFTING (>10lbs). Follow up in office. ([phone]) Call Your Doctor If: -Your temperature exceeds 101.5? F -You experience excessive pain or swelling -You have an unexpected reaction to medication -You have excessive bleeding -You experience continued vomiting/nausea -Your incision begins to separate -Your incision shows signs of infection such as increased redness, swelling, excessive pain, drainage (light blood or clear fluid is normal) or heat <ALESSIA Murcia Last Filed: 04/26/21 10:34> Care Plan Goals: Return to baseline health and gradual return to activity following recovery period. <ALESSIA Murcia Last Filed: 04/26/21 10:34> Health Concerns: acute cholecystitis suppurative <ALESSIA Murcia Last Filed: 04/26/21 10:34> Plan of Treatment: s/p laparoscopic cholecystectomy IV abx and PO augmentin at home F/u in office 2 weeks <ALESSIA Murcia Last Filed: 04/26/21 10:34> Assessment: Doing well post op <ALESSIA Murcia Last Filed: 04/26/21 10:34> Discharge Date/Time: 04/21/21 13:39 <ALESSIA Murcia Last Filed: 04/26/21 10:34>
--- NOTE | 2021-04-19 12:24 | MHC.CM.PN ---
PATIENT AGREES TO HOME WITH [facility] FOR WOUND CARE MONITORING AND MANAGEMENT HE IS ALSO AGREEABLE TO [facility] REFERRAL, NOW PLACED. PATIENT LIVES WITH HIS SIBLINGS WHO PROVIDE TRANSPORT ASSIST. HE ALSO USES [facility] FOR MEDICAL NEEDS TRANSPORTATION. HCP ON FILE AND VERIFIED PLAN IS DC HOME THURSDAY OR THURSDAY CASE MANAGEMENT FOLLOWING
--- NOTE | 2021-04-19 14:00 | MHC.CM.PN ---
Addendum entered by Valerie Campos 04/19/21 14:07: BOOSTER 04/19/21 Original Note: PATIENT HAS BEEN COVID VACCINATED WITH [employer] ON 05/21/20 HE ALSO RECEIVED HIS COVID-19 PFIZER BOOSTER ON 04/19/20 INFORMATION ADDED TO EXPANSE.
[2021-04-19 15:31] VITALS: BP 122/75; PULSE 98; RESP 18; TEMP 36.3; O2SAT 95
--- NOTE | 2021-04-19 16:01 | MHC.CM.PN ---
[facility] CANNOT OFFER THIS WEEKEND. THEY CAN REVIEW FOR POSSIBLE SERVICES STARTING NEXT WEEK, BUT UNABLE TO SAY THEY ARE WILLING TO OFFER. REFERRAL UPDATED TO INCLUDE [facility] [place] WITH A REQUEST FOR A CALL BACK TO THIS BOOK MENDER. NO CALL RECEIVED. REFERRAL UPDATED TO INCLUDE [facility]
[2021-04-19 19:50] VITALS: BP 113/55; PULSE 74; RESP 18; TEMP 36.8; O2SAT 96
[2021-04-19] MEDS: Topiramate 25 MG TABLET 50 MG PO (19:57)
[2021-04-19 23:41] VITALS: BP 123/74; PULSE 60; RESP 18; TEMP 36.4; O2SAT 96
[2021-04-20] MEDS: oxyCODONE HCl Immed Release 5 MG TABLET 10 MG PO ×4 (01:40→16:23)
[2021-04-20 03:42] VITALS: BP 122/61; PULSE 67; RESP 18; TEMP 36.6; O2SAT 96
[2021-04-20] MEDS: HYDROmorphone HCl 1 MG/ML SYRINGE 0.5 MG IVPUSH ×2 (04:37→07:52)
[2021-04-20] MEDS: Omeprazole 40 MG CAPSULE.DR PO (04:37)
[2021-04-20] MEDS: Piperacillin Sodium/Tazobactam 3.375 GM in 0.9 % Sodium Chloride 50 ML IV (04:37)
[2021-04-20 06:59] VITALS: BP 139/82; PULSE 89; RESP 18; TEMP 36.6; O2SAT 97
[2021-04-20] MEDS: 0.9 % Sodium Chloride Flush 3 ML SYRINGE IVFLUSH ×2 (07:52→20:09)
[2021-04-20] MEDS: Gabapentin 400 MG CAPSULE 2400 MG PO (07:52)
[2021-04-20] MEDS: Thiamine HCL 100 MG TABLET PO (07:53)
[2021-04-20] MEDS: Folic Acid 1 MG TABLET PO (07:53)
[2021-04-20] MEDS: Metoprolol Succinate ER 50 MG TAB.ER.24H PO (07:53)
[2021-04-20] MEDS: Furosemide 40 MG TABLET 80 MG PO (07:53)
[2021-04-20] MEDS: Escitalopram Oxalate 10 MG TABLET PO (07:53)
[2021-04-20] MEDS: Tamsulosin HCL 0.4 MG CAPSULE PO (07:53)
[2021-04-20 11:09] VITALS: BP 119/68; PULSE 74; RESP 20; TEMP -13.8; TEMP 7; O2SAT 91
--- NOTE | 2021-04-20 14:18 | PM.PNGS ---
Subjective Subjective Date of Service: 04/20/21 Interval history: pt ocmplaining of pain and not feeling well - lost iv and fallen behind on iv pain meds - eating ok and passing gas Physical Exam Vital Signs: Vital Signs: Last Vital Signs Temp 7 F L 04/20/21 11:09 Pulse 74 04/20/21 11:09 Resp 20 04/20/21 11:09 BP 119/68 04/20/21 11:09 Pulse Ox 91 L 04/20/21 11:09 BMI result Body Mass Index 35.7 HENMT: Head: Yes normal to inspection Resp: Effort & Inspection: normal respiratory effort Auscultation: clear to auscultation bilaterally Cardio: Rate: regular rate Rhythm: regular rhythm GI: Other: abdo soft nontender nodistended - leeann drain putting out still sero sanguinous fluid incisions look fine Psych: Speech and movement: Normal speech and movement present Affect: Irritable affect present Objective Data Active Medications Acetaminophen (Acetaminophen 325 Mg Tablet) 975 mg PO Q6H [facility] Amoxicillin/Clavulanate Potassium (Amoxicillin/Potassium Clav 875 Mg Tablet) 875 mg PO Q12H [facility] Escitalopram Oxalate (Escitalopram Oxalate 10 Mg Tablet) 10 mg PO DAILY [facility] Last Admin: 04/20/21 07:53 Dose: 10 mg Documented by: ELDA Folic Acid (Folic Acid 1 Mg Tablet) 1 mg PO DAILY [facility] Last Admin: 04/20/21 07:53 Dose: 1 mg Documented by: ELDA Furosemide (Furosemide 40 Mg Tablet) 80 mg PO DAILY [facility]; Protocol Last Admin: 04/20/21 07:53 Dose: 80 mg Documented by: ELDA Gabapentin (Gabapentin 400 Mg Capsule) 2,400 mg PO DAILY [facility] Last Admin: 04/20/21 07:52 Dose: 2,400 mg Documented by: ELDA Hydromorphone HCl (Hydromorphone Hcl 1 Mg/Ml Syringe) 1 mg IM Q4H PRN; Protocol PRN Reason: Pain, Severe (Pain Scale 7-10) Latanoprost (Latanoprost 0.005 % Ophth Shirley 2.5 Ml Drops) 1 drop EYE-BOTH DAILY [facility] Last Admin: 04/20/21 08:04 Dose: Not Given Documented by: ELDA Non-Admin Reason: Med Not Available Metoprolol Succinate (Metoprolol Succinate Er 50 Mg Tab.Er.24h) 50 mg PO DAILY [facility]; Protocol Last Admin: 04/20/21 07:53 Dose: 50 mg Documented by: ELDA Omeprazole (Omeprazole 40 Mg Capsule.Dr) 40 mg PO DAILY@0630 [facility] Last Admin: 04/20/21 04:37 Dose: 40 mg Documented by: RADHA Ondansetron HCl (Ondansetron Hcl 4 Mg/2 Ml Vial) 4 mg IVPUSH Q8H PRN PRN Reason: Nausea and Vomiting Oxycodone HCl (Oxycodone Hcl Immed Release 5 Mg Tablet) 5 mg PO Q4H PRN PRN Reason: Pain, Moderate (Pain Scale 4-6 Last Admin: 04/18/21 22:28 Dose: 5 mg Documented by: FLY Oxycodone HCl (Oxycodone Hcl Immed Release 5 Mg Tablet) 10 mg PO Q4H PRN PRN Reason: Pain, Severe (Pain Scale 7-10) Last Admin: 04/20/21 12:19 Dose: 10 mg Documented by: ELDA Sodium Chloride (0.9 % Sodium Chloride Flush 3 Ml Syringe) 3 ml IVFLUSH QSHIFT [facility] Last Admin: 04/20/21 07:52 Dose: 3 ml Documented by: ELDA Tamsulosin HCl (Tamsulosin Hcl 0.4 Mg Capsule) 0.4 mg PO DAILY [facility] Last Admin: 04/20/21 07:53 Dose: 0.4 mg Documented by: ELDA Thiamine HCl (Thiamine Hcl 100 Mg Tablet) 100 mg PO DAILY [facility] Last Admin: 04/20/21 07:53 Dose: 100 mg Documented by: ELDA Topiramate (Topiramate 25 Mg Tablet) 50 mg PO BEDTIME [facility] Last Admin: 04/19/21 19:57 Dose: 50 mg Documented by: RADHA Verapamil HCl (Verapamil Hcl Sr 100 Mg Cap24h.Pct) 200 mg PO BEDTIME [facility]; Protocol Last Admin: 04/19/21 19:57 Dose: 200 mg Documented by: RADHA Labs CBC & Chem 7: 04/18/21 05:25 04/19/21 05:40 Microbiology Microbiology Results: Microbiology 04/17/21 16:24 Blood Culture - Preliminary Blood - Venous No growth after 48 hours. 04/17/21 15:06 Blood Culture - Preliminary Blood - Venous No growth after 48 hours. Procedures Date of Service Date of Service: 04/20/21 Progress Note: A&P Assessment and plan (1) Acute acalculous cholecystitis: Status: Acute Assessment and Plan: 56 year old male pod#2 sp lap carlos for gangrenous gallbladder - doing well clinically just grumpy - better now lost iv and had sevral attempts and sticks for new one but no go. pt doesnt need iv access. goal to go home tomorrow so will transfer meds to po versions. pain - tyleonol q6 hrs round clock, oxycodone prn, dilaudid im last resort no and at night before bed. he also is on gabapentin switch antibx to augmentin ambulate small meals often low fat he understands and agrees with this plan to get him home tomorrow - consider dc leeann drain before dc home tomorrow Fall Risk Details Current Medications: Current Medications Acetaminophen (Acetaminophen 325 Mg Tablet) 975 mg PO Q6H [facility] Amoxicillin/Clavulanate Potassium (Amoxicillin/Potassium Clav 875 Mg Tablet) 875 mg PO Q12H [facility] Escitalopram Oxalate (Escitalopram Oxalate 10 Mg Tablet) 10 mg PO DAILY [facility] Last Admin: 04/20/21 07:53 Dose: 10 mg Documented by: Folic Acid (Folic Acid 1 Mg Tablet) 1 mg PO DAILY [facility] Last Admin: 04/20/21 07:53 Dose: 1 mg Documented by: Furosemide (Furosemide 40 Mg Tablet) 80 mg PO DAILY [facility]; Protocol Last Admin: 04/20/21 07:53 Dose: 80 mg Documented by: Gabapentin (Gabapentin 400 Mg Capsule) 2,400 mg PO DAILY [facility] Last Admin: 04/20/21 07:52 Dose: 2,400 mg Documented by: Hydromorphone HCl (Hydromorphone Hcl 1 Mg/Ml Syringe) 1 mg IM Q4H PRN; Protocol PRN Reason: Pain, Severe (Pain Scale 7-10) Latanoprost (Latanoprost 0.005 % Ophth Shirley 2.5 Ml Drops) 1 drop EYE-BOTH DAILY [facility] Last Admin: 04/20/21 08:04 Dose: Not Given Documented by: Metoprolol Succinate (Metoprolol Succinate Er 50 Mg Tab.Er.24h) 50 mg PO DAILY [facility]; Protocol Last Admin: 04/20/21 07:53 Dose: 50 mg Documented by: Omeprazole (Omeprazole 40 Mg Capsule.Dr) 40 mg PO DAILY@0630 [facility] Last Admin: 04/20/21 04:37 Dose: 40 mg Documented by: Ondansetron HCl (Ondansetron Hcl 4 Mg/2 Ml Vial) 4 mg IVPUSH Q8H PRN PRN Reason: Nausea and Vomiting Oxycodone HCl (Oxycodone Hcl Immed Release 5 Mg Tablet) 5 mg PO Q4H PRN PRN Reason: Pain, Moderate (Pain Scale 4-6 Last Admin: 04/18/21 22:28 Dose: 5 mg Documented by: Oxycodone HCl (Oxycodone Hcl Immed Release 5 Mg Tablet) 10 mg PO Q4H PRN PRN Reason: Pain, Severe (Pain Scale 7-10) Last Admin: 04/20/21 12:19 Dose: 10 mg Documented by: Sodium Chloride (0.9 % Sodium Chloride Flush 3 Ml Syringe) [facility] Last Admin: 04/20/21 07:52 Dose: 3 ml Documented by: Tamsulosin HCl (Tamsulosin Hcl 0.4 Mg Capsule) 0.4 mg PO DAILY [facility] Last Admin: 04/20/21 07:53 Dose: 0.4 mg Documented by: Thiamine HCl (Thiamine Hcl 100 Mg Tablet) 100 mg PO DAILY [facility] Last Admin: 04/20/21 07:53 Dose: 100 mg Documented by: Topiramate (Topiramate 25 Mg Tablet) 50 mg PO BEDTIME [facility] Last Admin: 04/19/21 19:57 Dose: 50 mg Documented by: Verapamil HCl (Verapamil Hcl Sr 100 Mg Cap24h.Pct) 200 mg PO BEDTIME [facility]; Protocol Last Admin: 04/19/21 19:57 Dose: 200 mg Documented by: Time Spent With Patient Time: Total time spent is greater than 50% in coordination of care (as documented) at patient's floor/unit and/or counseling patient: Time with patient: 25 - 35 minutes Quality Stroke Does the patient have a stroke diagnosis?: No VTE Prior VTE?: No VTE Risk Level:: Medical - moderate - high VTE Device Contraindication: N/A - Device Ordered VTE Drug Contraindication: N/A - Med Ordered
[2021-04-20] MEDS: Acetaminophen 325 MG TABLET 975 MG PO ×2 (14:27→20:08)
[2021-04-20] MEDS: Amoxicillin/Potassium Clav 875 MG TABLET PO (14:27)
[2021-04-20] MEDS: HYDROmorphone HCl 1 MG/ML SYRINGE IM (14:28)
[2021-04-20 15:28] VITALS: BP 102/72; PULSE 80; RESP 16; TEMP 36.7; O2SAT 95
[2021-04-20 20:00] VITALS: BP 130/74; PULSE 73; RESP 18; TEMP 36.6; O2SAT 93
[2021-04-20] MEDS: oxyCODONE HCl Immed Release 5 MG TABLET PO (20:08)
[2021-04-20] MEDS: Topiramate 25 MG TABLET 50 MG PO (20:08)
[2021-04-20 23:29] VITALS: BP 110/65; PULSE 71; RESP 17; TEMP 36.3; O2SAT 96
[2021-04-21] MEDS: oxyCODONE HCl Immed Release 5 MG TABLET 10 MG PO ×3 (00:45→11:42)
[2021-04-21] MEDS: Amoxicillin/Potassium Clav 875 MG TABLET PO (03:36)
[2021-04-21] MEDS: Acetaminophen 325 MG TABLET 975 MG PO ×2 (03:36→09:05)
[2021-04-21 03:45] VITALS: BP 120/73; PULSE 62; RESP 17; TEMP 36.3; O2SAT 95
[2021-04-21] MEDS: HYDROmorphone HCl 1 MG/ML SYRINGE IM (06:12)
[2021-04-21] MEDS: Omeprazole 40 MG CAPSULE.DR PO (06:12)
[2021-04-21 06:56] VITALS: BP 133/90; PULSE 100; RESP 18; TEMP 36.1; O2SAT 95
[2021-04-21] MEDS: Furosemide 40 MG TABLET 80 MG PO (09:05)
[2021-04-21] MEDS: Tamsulosin HCL 0.4 MG CAPSULE PO (09:06)
[2021-04-21] MEDS: Escitalopram Oxalate 10 MG TABLET PO (09:06)
[2021-04-21] MEDS: Metoprolol Succinate ER 50 MG TAB.ER.24H PO (09:06)
[2021-04-21] MEDS: Gabapentin 400 MG CAPSULE 2400 MG PO (09:06)
[2021-04-21] MEDS: Folic Acid 1 MG TABLET PO (09:06)
[2021-04-21] MEDS: Thiamine HCL 100 MG TABLET PO (09:06)
[2021-04-21 10:59] VITALS: BP 123/65; PULSE 62; RESP 19; TEMP 36.6; O2SAT 94
--- NOTE | 2021-04-21 11:53 | MHC.CM.PN ---
Addendum entered by Marcella Smith 04/21/21 13:01: STILL NOT [facility] AVAILABLE FOR PT. 26 REFERRALS NOW SENT AWAITING RESPONSES Original Note: PT CLEARED TO CT HOME TODAY WITH [facility] SEVERAL REFERRALS HAVE BEEN MADE, NO AGENCIES ARE WILLING TO ACCEPT DUE TO STAFFING SHORTAGES OR INSURANCE CONTRACTS MORE REFERRALS MADE, AWAITING RESPONSES
== END 2021-04-21 13:39 | disposition home health service (06) | DRG 263 ==
LOC: HO.ED 15:50 → HO.EDOVER 17:20 → HO.S3 18:06
PROVIDERS: Physician Assistant Surgical; Student in an Organized Health Care Education/Training Program; Admitting Provider Surgery; Emergency Provider Internal Medicine; PCP Internal Medicine; Visit Provider Surgery
PROC: 0FT44ZZ Resection of Gallbladder, Percutaneous Endoscopic Approach (ICD-10-PCS; CPT 47562; principal; 2021-04-18 10:00)
DX: K81.0 Acute cholecystitis (principal); I11.0 Hypertensive heart disease with heart failure; I50.32 Chronic diastolic (congestive) heart failure; K82.1 Hydrops of gallbladder; E78.5 Hyperlipidemia, unspecified; K66.0 Peritoneal adhesions (postprocedural) (postinfection); F17.210 Nicotine dependence, cigarettes, uncomplicated; N40.0 Benign prostatic hyperplasia without lower urinary tract symptoms; Z20.822 Contact with and (suspected) exposure to COVID-19; Z71.6 Tobacco abuse counseling; Z87.442 Personal history of urinary calculi; Z79.899 Other long term (current) drug therapy
CPT/HCPCS: 47562; 36415; 74176; 76705; 80048; 80053; 80076; 81001; 83605; 83690; 85025; 85610; 85730; 86850; 86900; 86901; 87040; 87635; 88304; 93005; 99024; 99285; J0131; J1100; J1170; J1885; J2250; J2405; J2543; J3010

== ENCOUNTER → 2021-04-22 14:05 | Outpatient (BNVA) | payer MEDICAID, SELFPAY | PROVIDERS: PCP Internal Medicine; Visit Provider Surgery | DX: L76.32 Postprocedural hematoma of skin and subcutaneous tissue following other procedure (principal) | CPT/HCPCS: 99211 ==

== ENCOUNTER → 2021-05-06 09:18 | Outpatient (BNVA) | payer MEDICAID, SELFPAY | PROVIDERS: PCP Internal Medicine; Visit Provider Surgery | DX: Z48.815 Encounter for surgical aftercare following surgery on the digestive system (principal); Z90.49 Acquired absence of other specified parts of digestive tract; Z87.19 Personal history of other diseases of the digestive system | CPT/HCPCS: 99212 ==